=== PATIENT | female | born 1975 | race Caucasian/White ===

== ENCOUNTER → 2017-08-07 11:51 | Outpatient (CLI) | payer OTHER, SELFPAY ==
[2017-08-07 14:14] LABS: Anion Gap 7 (5-15); BUN 12 mg/dL (7-18); BUN/Creat Ratio 14.8 RATIO (10-20); Calcium,Total 8.7 mg/dL (8.5-10.1); Chloride 104 mmol/L (98-107); Creatinine, Serum 0.81 mg/dL (0.55-1.02); EST Glomerular Filtration Rate 82 mL/min (>60); Est Glom Filt Rate - Afr Amer 99 mL/min (>60); Glucose 105 mg/dL (74-106); Magnesium 2.2 mg/dL (1.6-2.6); Potassium 3.8 mmol/L (3.5-5.1); Sodium Level 141 mmol/L (136-145)
== END ==
PROVIDERS: Family Provider Family Medicine; PCP Family Medicine; Visit Provider Family Medicine
DX: I10 Essential (primary) hypertension (principal)
CPT/HCPCS: 36415; 80048; 83735

== ENCOUNTER → 2017-09-27 08:31 | Outpatient (CLI) | payer OTHER, SELFPAY ==
--- NOTE | 2017-09-27 08:31 | DT_ITS ---
This patient was seen during an EMR downtime September 23, 2017 - September 30, 2017. This patient may have a combination of paper and electronic documentation or all paper documentation. All documentation is viewable within the e-chart portion of [facility] for each patient visit.
--- NOTE | 2017-09-27 08:38 | BI_ITS ---
MAMMOGRAPHY - BILATERAL SCREENING REASON FOR EXAM: Female, 42 years old. Routine annual screening examination. PERTINENT HISTORY: BASELINE EXAM NO FAM HX NO SX TECHNIQUE: Digital bilateral breast kimmie (3D mammographic acquisition) in the CC and MLO projections. 2-D mediolateral oblique (MLO) and craniocaudad (CC) views of both breasts were obtained. CAD: Full Field Digital Mammography with Computer Added Detection was performed. COMPARISON: None. FINDINGS: Breast Composition: The breasts are heterogeneously dense, which may obscure small masses. There are no dominant masses or suspicious calcifications. No other significant abnormalities are identified. BI/SCREENING MAMM (CAD), BILAT IMPRESSION: Stable bilateral screening mammogram. Yearly follow-up mammogram recommended. (A) ASSESSMENT CATEGORY: BIRADS Category 2: Benign. A letter regarding these results will be sent to the patient by the facility within 30 days. Approximately 10% of breast cancers are not detected by mammography. A normal mammogram should not delay biopsy of a clinically suspicious abnormality. [id number] Electronically Signed: Ninfa Barragan MD at 13:39 EDT Tel , Service support ,
== END ==
PROVIDERS: Family Provider Family Medicine; PCP Family Medicine; Visit Provider Obstetrics & Gynecology
DX: Z12.31 Encounter for screening mammogram for malignant neoplasm of breast (principal)
CPT/HCPCS: 77063; 77067

== ENCOUNTER → 2018-07-22 11:14 | Outpatient (CLI) | payer BC, SELFPAY ==
[2016-03-01 11:44] VITALS: BMI 32.2
[2018-07-22 12:16] LABS: Absolute Lymphocyte Count 1.41 X10^3/ul (0.83-4.51); Absolute Neutrophil Count 5.5 X10^3/uL (2.0-7.7); Basophil# 0.01 X10^3/uL; Basophil% 0.1 % (0-1); Eosinophil# 0.04 X10^3/uL; Eosinophils% 0.5 % (0-5); Hematocrit 39.3 % (37-47); Hemoglobin 12.7 g/dl (12.0-15.0); Lymphocyte # 1.41 X10^3/ul (4.0); Lymphocyte % 18.7 % (19-41); Mean Corp Hgb Conc 32.3 g/gl (32-36); Mean Corpuscular Hgb 30.9 pg (27.0-32.0); Mean Corpuscular Volume 95.6 fL (81-99); Mean Platelet Vol. 10.7 fl (6.2-12.0); Monocyte# 0.53 X10^3/uL; Neutrophil # 5.54 X10^3/uL (2.7-7.7); Neutrophil % 73.6 % (47-70); Platelet Count 258 K/mm3 (150-450); RBC Distribution Width CV 12.6 % (11.6-14.6); RBC Distribution Width SD 44.1 fl (35.1-43.9); Red Blood Count 4.11 M/mm3 (4.2-5.4); White Blood Count 7.5 K/mm3 (4.4-11.0)
[2018-07-22 12:19] LABS: POSITIVE COUNT NO; POSITIVE DIFFERENTIAL NO; POSITIVE MORPHOLOGY NO
[2018-07-22 12:48] LABS: ALB/GLOB Ratio 1.1 RATIO (0.9-2.4); AST(SGOT) 8 U/L (15-37); Alanine Aminotransfer ALT/SGPT 17 U/L (13-56); Albumin, Serum 3.4 g/dL (3.2-5.0); Alkaline Phosphatase 52 U/L (45-117); Anion Gap 6 (5-15); BUN 15 mg/dL (7-18); BUN/Creat Ratio 22.1 RATIO (10-20); Calcium,Total 8.5 mg/dL (8.5-10.1); Chloride 105 mmol/L (98-107); Creatinine, Serum 0.68 mg/dL (0.55-1.02); EST Glomerular Filtration Rate 100 mL/min (>60); Est Glom Filt Rate - Afr Amer 121 mL/min (>60); Glucose 84 mg/dL (74-106); Potassium 3.9 mmol/L (3.5-5.1); Protein, Total 6.4 g/dL (6.4-8.2); Sodium Level 140 mmol/L (136-145); Thyroid Stim Hormone (TSH) 2.64 uIU/mL (0.358-3.74)
== END ==
PROVIDERS: Family Provider Family Medicine; PCP Family Medicine; Referring Provider Family Medicine; Visit Provider Family Medicine
DX: F41.1 Generalized anxiety disorder (principal)
CPT/HCPCS: 36415; 80053; 84443; 85025

== ENCOUNTER → 2018-08-28 10:26 | Outpatient (CLI) | payer BC, SELFPAY ==
[2016-03-01 11:44] VITALS: BMI 32.2
[2018-08-28 12:40] LABS: AST(SGOT) 8 U/L (15-37); Alanine Aminotransfer ALT/SGPT 16 U/L (13-56); Albumin, Serum 3.6 g/dL (3.2-5.0); Alkaline Phosphatase 56 U/L (45-117); Bilirubin, Direct 0.16 mg/dL (0.00-0.30); Globulin 3.2 g/dL (2.2-4.2); Protein, Total 6.8 g/dL (6.4-8.2)
== END ==
PROVIDERS: Family Provider Family Medicine; PCP Family Medicine; Referring Provider Family Medicine; Visit Provider Family Medicine
DX: F41.1 Generalized anxiety disorder (principal)
CPT/HCPCS: 36415; 80076

== ENCOUNTER → 2022-08-31 | Outpatient (CLI) | payer OTHER, SELFPAY ==
[2022-08-31 17:47] LABS: Absolute Neutrophil Count 7.8 X10^3/uL (2.0-7.7); Basophil# 0.03 X10^3/uL; Basophil% 0.3 % (0-1); Eosinophil# 0.08 X10^3/uL; Eosinophils% 0.8 % (0-5); Hematocrit 33.2 % (37-47); Hemoglobin 10.1 g/dL (12.0-15.0); Lymphocyte % 15.8 % (19-41); Mean Corp Hgb Conc 30.4 g/dL (32-36); Mean Corpuscular Hgb 25.1 pg (27.0-32.0); Mean Corpuscular Volume 82.4 fL (81-99); Mean Platelet Vol. 11.4 fl (6.2-12.0); Monocyte# 0.56 X10^3/uL; Monocyte% 5.5 % (0-10); NRBC Flagged by Analyzer 0 % (0-5); Neutrophil # 7.84 X10^3/uL (2.7-7.7); Neutrophil % 77.2 % (47-70); Platelet Count 258 K/mm3 (150-450); RBC Distribution Width CV 18.3 % (11.6-14.6); RBC Distribution Width SD 54.1 fl (35.1-43.9); Red Blood Count 4.03 M/mm3 (4.2-5.4); White Blood Count 10.2 K/mm3 (4.4-11.0)
[2022-08-31 17:50] LABS: Mucous, Urine 0 SEEN /hpf (<or=2+)
[2022-08-31 17:55] LABS: Color, Urine Yellow (Yellow); Glucose, Dipstick Normal (Normal); Ketone-Dipstick 5 mg/dl (Negative); Leukocyte Esterase-Dipstick 100 /ul (Negative); Nitrite-Dipstick Negative (Negative); Occult Blood-Urine 25 /ul (Negative); Protein-Dipstick 30 mg/dl (Negative); Urine Bilirubin Dipstick Negative (Negative); Urine Clarity Sl. Cloudy (Clear); Urine Urobilinogen Normal (Normal)
[2022-08-31 18:06] LABS: Bacteria RARE /hpf (None Seen); Red Blood Cells-Urine 0-5 SEEN /hpf (0-5); Squamous Epithelial Cells - UA 5-10 SEEN /hpf (5-10); White Blood Cells 50-100 SEEN /hpf (0-5)
[2022-08-31 18:20] LABS: ALB/GLOB Ratio 0.8 RATIO (0.9-2.4); AST(SGOT) 16 U/L (15-37); Alanine Aminotransfer ALT/SGPT 25 U/L (13-56); Albumin, Serum 3.3 g/dL (3.2-5.0); Alkaline Phosphatase 79 U/L (45-117); Anion Gap 6 (5-15); BUN 15 mg/dL (7-18); BUN/Creat Ratio 17.8 RATIO (10-20); Calcium,Total 8.6 mg/dL (8.5-10.1); Chloride 107 mmol/L (98-107); Creatinine, Serum 0.84 mg/dL (0.55-1.02); EST Glomerular Filtration Rate 76 mL/min (>60); Est Glom Filt Rate - Afr Amer 93 mL/min (>60); Globulin 3.9 g/dL (2.2-4.2); Glucose 101 mg/dL (74-106); Potassium 3.1 mmol/L (3.5-5.1); Protein, Total 7.2 g/dL (6.4-8.2); Sodium Level 140 mmol/L (136-145); Thyroid Stim Hormone (TSH) 4.22 uIU/mL (0.358-3.74)
== END | disposition home or self-care (01) ==
PROVIDERS: PCP Family Medicine; Visit Provider Family Medicine
DX: I10 Essential (primary) hypertension (principal); R35.0 Frequency of micturition; R39.15 Urgency of urination
CPT/HCPCS: 36415; 80053; 81001; 83036; 84443; 85025; 87077; 87086; 87088; 87186

== ENCOUNTER → 2022-11-09 | Outpatient (CLI) | payer OTHER, SELFPAY ==
[2022-11-09 18:59] LABS: Anion Gap 6 (5-15); BUN 21 mg/dL (7-18); BUN/Creat Ratio 22.8 RATIO (10-20); Chloride 107 mmol/L (98-107); Creatinine, Serum 0.92 mg/dL (0.55-1.02); EST Glomerular Filtration Rate 69 mL/min (>60); Est Glom Filt Rate - Afr Amer 84 mL/min (>60); Free T3 2.1 pg/mL (2.18-3.98); Glucose 85 mg/dL (74-106); Magnesium 2.1 mg/dL (1.6-2.6); Potassium 3.6 mmol/L (3.5-5.1); Sodium Level 140 mmol/L (136-145); T4 Free Direct 0.92 ng/dL (0.76-1.46); Thyroid Stim Hormone (TSH) 1.73 uIU/mL (0.358-3.74)
== END | disposition home or self-care (01) ==
LOC: MTLAB 15:26
PROVIDERS: PCP Family Medicine; Referring Provider Family Medicine; Visit Provider Family Medicine
DX: E87.6 Hypokalemia (principal); R79.89 Other specified abnormal findings of blood chemistry
CPT/HCPCS: 36415; 80048; 83735; 84439; 84443; 84481

== ENCOUNTER → 2023-03-22 | Outpatient (CLI) | payer OTHER, SELFPAY ==
[2023-03-22 18:23] LABS: Anion Gap 6 (5-15); BUN 17 mg/dL (7-18); BUN/Creat Ratio 22.6 RATIO (10-20); Calcium,Total 8.3 mg/dL (8.5-10.1); Chloride 107 mmol/L (98-107); Creatinine, Serum 0.75 mg/dL (0.55-1.02); EST Glomerular Filtration Rate 87 mL/min (>60); Est Glom Filt Rate - Afr Amer 106 mL/min (>60); Glucose 82 mg/dL (74-106); Magnesium 2.3 mg/dL (1.6-2.6); Potassium 3.8 mmol/L (3.5-5.1); Sodium Level 139 mmol/L (136-145)
== END | disposition home or self-care (01) ==
LOC: MFPLAB 15:32
PROVIDERS: PCP Family Medicine; Visit Provider Family Medicine
DX: I10 Essential (primary) hypertension (principal); E87.6 Hypokalemia; R79.89 Other specified abnormal findings of blood chemistry
CPT/HCPCS: 36415; 80048; 83735; 84443

== ENCOUNTER 2024-09-17 12:42 | Emergency (ER) | payer OTHER, SELFPAY ==
[2024-09-17 12:44] VITALS: BP 149/111; PULSE 88; RESP 14; TEMP 36.1; O2SAT 98; BMI 36.8
--- NOTE | 2024-09-17 13:20 | EX.ED.VIS.PS ---
HPI HPI - Psych History of Present Illness Chief Complaint: Mental Health Narrative Narrative: Chief complaint and HPI: Desmond. 48-year-old female with past medical history of bipolar presents for evaluation of mental health evaluation due to desmond. Patient states she follows with the counseling center in which she sees Dr. Case. She states she was recently titrated off of Abilify but is now back on a low dose. Also takes Wellbutrin and Lamictal. Patient states for the past 3 days she has had insomnia, flight of ideas, racing thoughts, pressured speech. in the room is in agreement. She endorses intermittent marijuana abuse. States that she called the counseling center today and they told her to come for mental health evaluation. She denies any visual or auditory hallucinations. Denies any homicidal or suicidal ideation. Denies any fever, chills, shortness of breath, chest pain, dysuria. States she has had some nausea. Review of systems: See HPI Medications: As listed on the chart Allergies: As listed on the chart PFSH: Per chart Vital signs: As listed on the chart. Reviewed. Physical exam: Gen: A&O x3, NAD Head: Normocephalic, atraumatic Eyes: No sclera icterus, conjunctiva clear ENT: Moist mucous membranes Neck: Trachea midline, No JVD CV: RRR, no murmurs Resp: Lungs CTA BL, no w/r/c GI: Abd soft, non-distended, non-tender, no r/r/g Musc: Full ROM, no deformity Skin: Warm, dry Neuro: Alert, oriented, grossly intact, sensation intact Psych: Cooperative, appropriate mood and affect, does not appear to have pressured speech or flight of ideas while speaking with me although reports she is speaking faster than normal [facility] Medical History (Updated 09/17/24 @ 14:[address] Say Mendoza, DO) Bipolar 1 disorder Home Medications ?Medication ?Instructions ?Recorded ?Last Taken ?Type aripiprazole 2 mg tablet 2 mg PO DAILY 09/06/15 Unknown History hydroxyzine pamoate 25 mg capsule 25 - 50 mg PO BID PRN Anxiety 09/29/15 Unknown History Lactobacillus acidophilus 2 1 ea PO DAILY 04/26/16 Unknown History billion cell tablet ascorbic acid (vitamin C) 500 mg 500 mg PO DAILY 04/26/16 Unknown History tablet (Vitamin C) bupropion HCl 300 mg 24 hr tablet, 300 mg PO DAILY 04/26/16 Unknown History extended release melatonin 10 mg sublingual tablet 10 mg PO QHS 04/26/16 Unknown History Allergy/AdvReac Type Severity Reaction Status Date / Time No Known Allergies Allergy Verified 09/17/24 12:43 Social History Smoking Status: Never smoker EXAM Physical Exam Const Vital Signs: 09/17/24 12:44 09/17/24 15:12 Temperature 97 F L 97.8 F Temperature Source Temporal Pulse Rate 88 74 Respiratory Rate 14 16 Blood Pressure 149/111 H 156/92 H Blood Pressure Mean 123 113 Pulse Ox 98 97 Oxygen Delivery Method Room Air MDM MDM MDM Narrative Medical decision making narrative: 48-year-old female with past medical history of bipolar presents for evaluation of mental health evaluation due to desmond. Patient states for the past 3 days she has had insomnia, flight of ideas, racing thoughts, and pressured speech. Called counseling center who wanted her evaluated in the emergency department. Denies suicidal or homicidal ideation. On presentation patient is alert and oriented x 3. She does not appear to have flight of ideas or racing thoughts while speaking with me. She does not appear to have pressured speech although states that she is talking faster than normal. Differential diagnosis includes but is not limited to bipolar with desmond, anxiety, insomnia, suspect less likely electrolyte abnormality, substance abuse, or thyroid disease. Mental health laboratory workup will be ordered for clearance. CBC unremarkable without leukocytosis or anemia. CMP unremarkable. TSH unremarkable. UA negative for UTI. Drug screen positive for cannabinoid. Patient does admit to marijuana abuse. Alcohol level unremarkable. Patient was evaluated by crisis, patient was safety planned and offered outpatient resources. I agree with this plan. Patient is comfortable. Return precautions explained. Patient stable to discharge home. Impression: 1. Bipolar disorder with reported desmond 2. Marijuana abuse Lab Data Labs: Laboratory Results - last 24 hr 09/17/24 09/17/24 13:51 14:36 WBC 8.9 RBC 4.66 Hgb 13.8 Hct 42.6 MCV 91.4 MCH 29.6 MCHC 32.4 RDW Std Deviation 49.4 H RDW Coeff of Vandana 14.6 Plt Count 245 MPV 10.5 Immature Gran % (Auto) 0.300 Neut % (Auto) 65.7 Lymph % (Auto) 24.2 Sequoyah % (Auto) 7.3 Eos % (Auto) 1.9 Baso % (Auto) 0.6 Absolute Neuts (auto) 5.9 Absolute Lymphs (auto) 2.16 Nucleated RBC % 0 Sodium 141 Potassium 3.7 Chloride 103 Carbon Dioxide 27.6 Anion Gap 11 BUN 14 Creatinine 0.76 Estim Creat Clear Calc 83.82 Est GFR (MDRD) Non-Af 96 BUN/Creatinine Ratio 18.3 Glucose 89 Calcium 9.6 Total Bilirubin 0.25 AST 16 ALT 14 Alkaline Phosphatase 94 Total Protein 7.4 Albumin 4.3 Globulin 3.0 Albumin/Globulin Ratio 1.4 TSH 2.800 Urine Color Yellow Urine Clarity Sl. Cloudy Urine pH 7.0 Ur Specific Edgard 1.015 Urine Protein Negative Urine Glucose (UA) Normal Urine Ketones Negative Urine Occult Blood 150 H Urine Nitrite Negative Urine Bilirubin Negative Urine Urobilinogen Normal Ur Leukocyte Esterase Negative Urine RBC 0-5 SEEN Urine WBC 0-5 SEEN Ur Squamous Epith Cells 5-10 SEEN Other Crystals Urine Bacteria 2+ Urine Mucus 0 SEEN Urine Opiates Screen NEGATIVE U Buprenorphine Qual NEGATIVE Ur Oxycodone Screen NEGATIVE Urine Methadone Screen NEGATIVE Urine Fentanyl Screen NEGATIVE Ur Barbiturates Screen NEGATIVE Ur Phencyclidine Scrn NEGATIVE Ur Amphetamines Screen NEGATIVE U Benzodiazepines Scrn NEGATIVE Urine Cocaine Screen NEGATIVE U Cannabinoids Screen PRESUMPTIVE POSITIVE Ethyl Alcohol < 10.1 Discharge Plan Triage Chief Complaint: Mental Health ED Provider: Say Mendoza Dx/Rx/DC Orders Clinical Impression: Bipolar disorder Instructions: ED Bipolar Disorder Prescriptions: No Action aripiprazole 2 MG tablet 2 mg PO DAILY hydroxyzine pamoate 25 MG capsule 25 - 50 mg PO BID PRN (Reason: Anxiety) ascorbic acid (vitamin C) [Vitamin C] 500 MG tablet 500 mg PO DAILY bupropion HCl 300 MG tablet extended release 24 hr 300 mg PO DAILY Lactobacillus acidophilus 1 EACH tablet 1 ea PO DAILY melatonin 10 MG tablet 10 mg PO QHS Primary Care Provider: Juan Antonio Shaw Referrals: Juan Antonio Shaw MD [Primary Care Provider] - 3-5 Days Activity Restrictions/Additional Instructions: Follow-up with primary care physician and psychiatrist as well as the counseling center. Return back to the ED if symptoms change or worsen. Print Language: Albanian Disposition Disposition: Home, Self Care Discharge Date/Time: 09/17/24 15:12
--- NOTE | 2024-09-17 14:00 | CM.ED ---
Social work Due to patient being a client at [facility] and this SW having other patient situations, SW called and spoke with Alexei at [facility] (ph: [phone]) who agreed to come and assess. Per Alexei, patient had psychiatry follow up scheduled for 09/29/24 and Alexei was able to safety plan with patient. No further needs identified at this time. Nadeen Smith, AROMATHERAPIST, VENEER TAPER
[2024-09-17 14:02] LABS: Absolute Lymphocyte Count 2.16 X10^3/uL (0.83-4.51); Absolute Neutrophil Count 5.9 X10^3/uL (2.0-7.7); Basophil# 0.05 X10^3/uL; Basophil% 0.6 % (0-1); Eosinophil# 0.17 X10^3/uL; Eosinophils% 1.9 % (0-5); Hematocrit 42.6 % (37-47); Hemoglobin 13.8 g/dL (12.0-15.0); Lymphocyte # 2.16 X10^3/ul (0.83-4.51); Lymphocyte % 24.2 % (19-41); Mean Corp Hgb Conc 32.4 g/dL (32-36); Mean Corpuscular Hgb 29.6 pg (27.0-32.0); Mean Corpuscular Volume 91.4 fL (81-99); Mean Platelet Vol. 10.5 fl (6.2-12.0); Monocyte# 0.65 X10^3/uL; Monocyte% 7.3 % (0-10); NRBC Flagged by Analyzer 0 % (0-5); Neutrophil # 5.88 X10^3/uL (2.7-7.7); Neutrophil % 65.7 % (47-70); Platelet Count 245 K/mm3 (150-450); RBC Distribution Width CV 14.6 % (11.6-14.6); RBC Distribution Width SD 49.4 fl (35.1-43.9); Red Blood Count 4.66 M/mm3 (4.2-5.4); White Blood Count 8.9 K/mm3 (4.4-11.0)
[2024-09-17 14:39] LABS: Alcohol, Blood (Medical)-Serum < 10.1 mg/dL (<=10.0)
[2024-09-17 14:47] LABS: ALB/GLOB Ratio 1.4 RATIO (0.9-2.4); AST(SGOT) 16 U/L (<=31); Alanine Aminotransfer ALT/SGPT 14 U/L (<=34); Albumin, Serum 4.3 g/dL (3.5-5.0); Alkaline Phosphatase 94 U/L (35-104); Anion Gap 11 (5-15); BUN 14 mg/dL (4-19); BUN/Creat Ratio 18.3 RATIO (10-20); Calcium,Total 9.6 mg/dL (7.6-11.0); Carbon Dioxide 27.6 mmol/L (21.0-32.0); Chloride 103 mmol/L (98-108); Creatinine, Serum 0.76 mg/dL (0.70-1.20); EST Glomerular Filtration Rate 96 (>60); Estimated Creatinine Clearance 83.82 ml/min (50-250); Glucose 89 mg/dL (70-99); Potassium 3.7 mmol/L (3.3-5.1); Protein, Total 7.4 g/dL (5.9-8.4); Sodium Level 141 mmol/L (133-145); Total Bilirubin 0.25 mg/dL (0.00-1.30)
[2024-09-17 15:00] LABS: Color, Urine Yellow (Yellow); Glucose, Dipstick Normal (Normal); Ketone-Dipstick Negative (Negative); Leukocyte Esterase-Dipstick Negative /ul (Negative); Mucous, Urine 0 SEEN /hpf (<or=2+); Nitrite-Dipstick Negative (Negative); Occult Blood-Urine 150 /ul (Negative); Protein-Dipstick Negative (Negative); Specific Gravity, Urine 1.015 (1.002-1.030); Urine Bilirubin Dipstick Negative (Negative); Urine Clarity Sl. Cloudy (Clear); Urine Urobilinogen Normal (Normal)
[2024-09-17 15:10] LABS: Bacteria 2+ /hpf (None Seen); Red Blood Cells-Urine 0-5 SEEN /hpf (0-5); Squamous Epithelial Cells - UA 5-10 SEEN /hpf (5-10); White Blood Cells 0-5 SEEN /hpf (0-5)
[2024-09-17 15:12] VITALS: BP 156/92; PULSE 74; RESP 16; TEMP 36.6; O2SAT 97
[2024-09-17 15:19] LABS: Amphetamine Urine NEGATIVE (<1000 ng/mL); Barbiturate Urine NEGATIVE (< 200 ng/mL); Benzodiazepine Urine NEGATIVE (< 200 ng/mL); Buprenorphine Urine NEGATIVE (< 200 ng/mL); Cocaine Urine NEGATIVE (< 300 ng/mL); Fentanyl, Urine NEGATIVE; Methadone Urine NEGATIVE (< 300 ng/mL); Opiates Urine NEGATIVE (< 300 ng/mL); Oxycodone, Urine NEGATIVE (< 100 ng/mL); PCP Urine NEGATIVE (< 25 ng/mL); THC Urine PRESUMPTIVE POSITIVE (< 50 ng/mL)
== END 2024-09-17 15:12 | disposition home or self-care (01) ==
PROVIDERS: Emergency Provider Surgery; PCP Family Medicine; Referring Provider Surgery; Visit Provider Surgery
DX: F30.9 Manic episode, unspecified (principal); F12.10 Cannabis abuse, uncomplicated
CPT/HCPCS: 80053; 80307; 81001; 82077; 84443; 85025; 99282

== ENCOUNTER → 2024-10-16 | Outpatient (CLI) | payer OTHER, SELFPAY ==
[2024-10-16 12:16] LABS: Absolute Lymphocyte Count 1.62 X10^3/uL (0.83-4.51); Absolute Neutrophil Count 5.9 X10^3/uL (2.0-7.7); Basophil# 0.04 X10^3/uL; Basophil% 0.5 % (0-1); Eosinophil# 0.11 X10^3/uL; Eosinophils% 1.4 % (0-5); Hematocrit 41.4 % (37-47); Hemoglobin 13.6 g/dL (12.0-15.0); Lymphocyte # 1.62 X10^3/ul (0.83-4.51); Lymphocyte % 20.1 % (19-41); Mean Corp Hgb Conc 32.9 g/dL (32-36); Mean Corpuscular Hgb 30.5 pg (27.0-32.0); Mean Corpuscular Volume 92.8 fL (81-99); Mean Platelet Vol. 10.5 fl (6.2-12.0); Monocyte# 0.37 X10^3/uL; Monocyte% 4.6 % (0-10); NRBC Flagged by Analyzer 0 % (0-5); Neutrophil # 5.87 X10^3/uL (2.7-7.7); Neutrophil % 72.7 % (47-70); Platelet Count 241 K/mm3 (150-450); RBC Distribution Width CV 13.3 % (11.6-14.6); RBC Distribution Width SD 45.3 fl (35.1-43.9); Red Blood Count 4.46 M/mm3 (4.2-5.4); White Blood Count 8.1 K/mm3 (4.4-11.0)
[2024-10-16 13:16] LABS: ALB/GLOB Ratio 1.5 RATIO (0.9-2.4); AST(SGOT) 18 U/L (<=31); Alanine Aminotransfer ALT/SGPT 17 U/L (<=34); Albumin, Serum 4.2 g/dL (3.5-5.0); Alkaline Phosphatase 88 U/L (35-104); Anion Gap 12 (5-15); BUN 13 mg/dL (4-19); Calcium,Total 9.2 mg/dL (7.6-11.0); Carbon Dioxide 23.4 mmol/L (21.0-32.0); Chloride 105 mmol/L (98-108); Creatinine, Serum 0.81 mg/dL (0.70-1.20); EST Glomerular Filtration Rate 88 (>60); Globulin 2.8 g/dL (2.2-4.2); Glucose 107 mg/dL (70-99); Potassium 3.6 mmol/L (3.3-5.1); Sodium Level 140 mmol/L (133-145); Total Bilirubin 0.24 mg/dL (0.00-1.30)
[2024-10-16 13:49] LABS: Lithium 0.24 mmol/L (0.60-1.20)
== END | disposition home or self-care (01) ==
LOC: LAB 11:27
PROVIDERS: PCP Family Medicine; Referring Provider Registered Nurse; Visit Provider Registered Nurse
DX: Z79.899 Other long term (current) drug therapy (principal)
CPT/HCPCS: 36415; 80053; 80178; 84443; 85025

== ENCOUNTER → 2024-11-17 | Outpatient (CLI) | payer OTHER, SELFPAY ==
--- OUTSIDE RECORDS SUMMARY | 2024-11-17 05:52 | XMS RPT_ITS | CCD ---
Author Organization [facility] Inform ion Partnership [facility] Care Team Providers Care Benefits Assistant Name Role Phone AL-ALI, FIRAS Unavailable Unavailable AL-ALI, FIRAS Unavailable Unavailable ILAN HERNANDEZ Unavailable Unavailable [facility], CRIT Unavailable Unavaila DEJAH Marsh Unavailable Unavailable AL-ALI, FIRAS Unavailable Unavailable AL-ALI, FIRAS Unavailable Unavailable Pcp, No Primary Care Provider Unavailabl e Unavailable Primary Care Provider UnavailSobeida Saxena NP Referring Unavailable Sobeida Trejo NP Attending Unavailable Juan Antonio Shaw Primary Care Unavailable Say Mendoza Attending UnavailJuan Antonio De La Garza Primary Care Unavailable Say eMndoza Referring Unavailabl e Medications Current Medications Medication Drug Class(es) Dates Sig (Normalized) Sig (Original) sulfamethoxazole 800 mg / trimethoprim 160 mg oral tablet (1 source) Dihydrofolate Reductase Inhibitor Antibacterial, Sulfonamide Antimicrobial Start: 08-05-2022 End: 08-08-2022 take 1 tablet by mouth twice daily sulfamethoxazol e-trimethoprim (BACTRIM DS) 800-160 mg per tablet Take 1 tablet by mouth twice daily for 3 days. 6 tablet 0 08/05/2022 08/08/2022 Active Comment on above: Take 1 tablet by [facility] twice daily for 3 days. Completed/Discontinued Medications Medication Drug Class(es) Dates Sig (Normalized) Sig (Original) acetaminophen 325 mg / oxyCODONE hydrochloride 7.5 mg oral tablet (2 sources) Opioid Agonist Start: 10-20-2015 take 1 tablet by mouth every six hours as needed oxyCODONE-acetamin ophen (PERCOCET) 7.5-325 mg tablet Take 1 tablet by mouth every 6 hours as needed. 20 tablet 0 10/20/2015 Active Comment on above: Take 1 tablet by [facility] every 6 hours as needed. ARIPiprazole 2 mg oral tablet (2 sources) Atypical Antipsychotic Start: 08-29-2015 ARIPiprazole (ABILIFY) 2 mg tablet Aspirin (2 sources) Platelet Aggregation Inhibitor, Nonsteroidal Anti-inflammatory Drug BABY ASPIRIN ORAL once daily. 0 Active Comment on above: once daily. benzoyl peroxide 0.05 mg/mg / clindamycin 0.01 mg/mg topical gel (2 sources) Lincosamide Antibacterial Start: 08-16-2015 Clindamycin-Benzoy l Peroxide 1-5 % gel 24 hr buPROPion hydrochloride 150 mg extended release oral tablet (4 sources) Aminoketone Start: 08-29-2015 buPROPion XL (WELLBUTRIN XL) 150 mg 24 hr tablet take 25 mg by mouth once daily B UPROPION HCL (WELLBUTRIN ORAL) 25 mg once daily. 0 Active Comment on above: 25 mg once daily. famotidine 20 mg oral tablet (2 sources) Histamine-2 Receptor Antagonist take 1 tablet by mouth twice daily famotidine (PEPCID) 20 mg tablet Take 20 mg by mouth twice daily. 0 Active Comment on above: Take 20 mg by mouth twice daily. FLUoxetine 40 mg oral capsule (2 sources) Serotonin Reuptake Inhibitor Start: 016 FLUoxetine HCl (PROZAC) 40 mg capsule fluticasone propionate 0.05 mg/actuat metered dose nasal spray (2 sources) Corticosteroid take 1 spray(s) nasal route once daily fluticasone (FLONASE) 50 mcg/actuation nasal spray Use 1 [place] in each nostril once daily. 0 Active Comment on above: Use 1 [place] in each nostril once daily. hydrOXYzine pamoate 25 mg oral capsule (2 sources) Antihistamine Start: 016 hydrOXYzine pamoate (VISTARIL) 25 mg capsule loratadine 10 mg oral capsule (2 sources) loratadine 10 mg cap Take by mouth. 0 Active Comment on above: Take by mouth. phenazopyridine hydrochloride 200 mg oral tablet (1 source) Start: 023 take 1 tablet by mouth every eight hours as needed phenazopyridine (PYRIDIUM) 200 mg tablet Take 1 tablet by mouth three times daily as needed. 6 tablet 0 08/05/2022 Active Comment on above: Take 1 tablet by [facility] three times daily as needed. 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-2013 Chronic Genitourinary symptoms and ill-defined conditions (2 sources) Increased frequency of urination; Translations: [Frequency of micturition] Episodic Immunizations and screening for infectious disease (7 sources) Patient encounter status; Translations: [Encounter for screening for human papillomavirus (HPV)] Episodic Mood disorders (1 source) Manic episode, unspecified; Translations: [Manic episode, unspecified] Onset: 09-22-2024 Chronic Other aftercare (1 source) Other technician terminal and repeater (current) drug therapy; Translations: [Other technician terminal and repeater (current) drug therapy] Onset: 10-21-2024 Episodic Other female genital disorders (1 source) Abnormal uterine bleeding; Translations: [Abnormal uterine and vaginal bleeding, unspecified] Chronic Other nutritional; endocrine; and metabolic disorders (1 source) Obesity; Translations: [Other obesity due to excess calories] Chronic Other screening for suspected conditions (not mental disorders or infectious disease) (1 source) Cancer cervix screening status; Translations: [Encounter for screening for malignant neoplasm of cervix] Episodic Other skin disorders (2 sources) Acne; Translations: [Other acne] 11-21-2005 Episodic Other upper respiratory disease (2 sources) Allergic rhinitis; Translations: [Allergic rhinitis, unspecified] 11-21-2005 Chronic Past or Other Problems Problem Classification Problem Date Documented Da te Episodic/Chronic Calculus of urinary tract (2 sources) Kidney stone; Translations: [Calculus of kidney] Onset: 05-02-2007 05-02-2007 Episodic Unclassified (1 source) CAROTID ART DISSECTION; Translations: [CAROTID ART DISSECTION] Onset: 11-26-2013 Results Test Name Value Interpretation Reference Range Facility CBC W/Diff, Automatedon 09-21 Absolute Lymph 1.62 X10 3/uL Normal 0.83-4.51 [facility] Comment on above: Performed By: #### L [id number], L100.0100, L500.4050, L501.9060 #### [facility] [address] [place], [address] Absolute Neut 5.9 X10 3/uL Normal 2.0-7.7 [facility] Comment on above: Performed By: #### L [id number], L100.0100, L500.4050, L501.9060 #### [facility] [address] [place], [address] Basophils/100 WBC (Bld) 0.5 % Normal 0-1 [facility] Comment on above: Performed By: #### L [id number], L100.0100, L500.4050, L501.9060 #### [facility] [address] [place], [address] Eosinophils/100 WBC (Bld) 1.4 % Normal 0-5 [facility] Comment on above: Performed By: #### L [id number], L100.0100, L500.4050, [id number] #### [facility] [address] [place], [address] Erythrocyte distribution width (RBC) [Ratio] 13.3 % Normal 11.6-14.6 [facility] Comment on above: Performed By: #### L [id number], L100.0100, L500.4050, L501.9060 #### [facility] [address] [place], [address] Hematocrit (Bld) [Volume fraction] 41.4 % Normal 37-47 [facility] Comment on above: Performed By: #### L 501.9520, L100.0100, L500.4050, L501.9060 #### [facility] [address] [place], [address] Hemoglobin (Bld) [Mass/Vol] 13.6 g/dL Normal 12.0-15.0 [facility] Comment on above: Performed By: #### L 501.9520, L100.0100, L500.4050, L501.9060 #### [facility] [address] [place], [address] IG% 0.700 Normal 0.0-0.9 [facility] Comment on above: Result Comment: IG% - Immature Granulocytes (promyelocytes, myelocytes and metamyelocytes) > 1% indicates that a LEFT SHIFT is Present. Performed By: #### L [id number], L100.0100, L500.4050, L501.9060 #### [facility] [address] [place], [address] Lymphocytes/100 WBC (Bld) 20.1 % Normal 19-41 [facility] Comment on above: Performed By: #### L 501.9520, L100.0100, L500.4050, L501.9060 #### [facility] [address] [place], [address] MCH (RBC) [Entitic mass] 30.5 pg Normal 27.0-32.0 [facility] Comment on above: Performed By: #### L 501.9520, L100.0100, L500.4050, L501.9060 #### [facility] [address] [place], [address] MCHC (RBC) [Mass/Vol] 32.9 g/dL Normal 32-36 [facility] Comment on above: Performed By: #### L 501.9520, L100.0100, L500.4050, L501.9060 #### [facility] [address] [place], [address] MCV (RBC) [Entitic vol] 92.8 fL Normal 81-99 [facility] Comment on above: Performed By: #### L 501.9520, L100.0100, L500.4050, L501.9060 #### [facility] [address] [place], [address] Monocytes/100 WBC (Bld) 4.6 % Normal 0-10 [facility] Comment on above: Performed By: #### L 501.9520, L100.0100, L500.4050, [id number] #### [facility] [address] [place], [address] Neutrophils/100 WBC (Bld) 72.7 % High 47-70 [facility] Comment on above: Performed By: #### L 501.9520, L100.0100, L500.4050, L501.9060 #### [facility] [address] [place], [address] Nucleated RBC (Bld) [#/Vol] 0 10*3/uL Normal 0-5 [facility] Comment on above: Performed By: #### L 501.9520, L100.0100, L500.4050, L501.9060 #### [facility] [address] [place], [address] Platelet mean volume (Bld) [Entitic vol] 10.5 fL Normal 6.2-12.0 [facility] Comment on above: Performed By: #### L 501.9520, L100.0100, L500.4050, L501.9060 #### [facility] [address] [place], [address] Platelets (Bld) [#/Vol] 241 10*3/uL Normal 150-450 [facility] Comment on above: Performed By: #### L 501.9520, L100.0100, L500.4050, L501.9060 #### [facility] [address] [place], [address] RBC (Bld) [#/Vol] 4.46 10*6/uL Normal 4.2-5.4 [facility] Comment on above: Performed By: #### L 501.9520, L100.0100, L500.4050, L501.9060 #### [facility] [address] [place], [address] RDW SD 45.3 fl High 35.1-43.9 [facility] Comment on above: Performed By: #### L 501.9520, L100.0100, L500.4050, L501.9060 #### [facility] [address] [place], [address] WBC (Bld) [#/Vol] 8.1 10*3/uL Normal 4.4-11.0 [facility] Comment on above: Performed By: #### L 501.9520, L100.0100, L500.4050, L501.9060 #### [facility] [address] [place], [address] Comprehensive Metabolic [facility] 10-16-2024 Albumin [Mass/Vol] 4.2 g/dL Normal 3.5-5.0 [facility] Comment on above: Performed By: #### L 501.9520, L100.0100, L500.4050, L501.9060 #### [facility] [address] [place], [address] Albumin/Globulin [Mass ratio] 1.5 {ratio} Normal 0.9-2.4 [facility] Comment on above: Performed By: #### L 501.9520, L100.0100, L500.4050, L501.9060 #### [facility] [address] [place], [address] ALK PHOS 88 U/L Normal 35-104 [facility] Comment on above: Performed By: #### L 501.9520, L100.0100, L500.4050, L501.9060 #### [facility] [address] [place], [address] ALT [Catalytic activity/Vol] 17 U/L Normal <=34 [facility] Comment on above: Performed By: #### L 501.9520, L100.0100, L500.4050, L501.9060 #### [facility] [address] [place], [address] AST [Catalytic activity/Vol] 18 U/L Normal <=31 [facility] Comment on above: Performed By: #### L 501.9520, L100.0100, L500.4050, L501.9060 #### [facility] [address] [place], [address] Bilirubin [Mass/Vol] 0.24 mg/dL Normal 0.00-1.30 [facility] Comment on above: Performed By: #### L 501.9520, L100.0100, L500.4050, L501.9060 #### [facility] [address] [place], [address] BUN/CRE 16.0 RATIO Normal 10-20 [facility] Comment on above: Performed By: #### L 501.9520, L100.0100, L500.4050, L501.9060 #### [facility] [address] [place], [address] Calcium [Mass/Vol] 9.2 mg/dL Normal 7.6-11.0 [facility] Comment on above: Performed By: #### L 501.9520, L100.0100, L500.4050, L501.9060 #### [facility] [address] [place], [address] Chloride [Moles/Vol] 105 mmol/L Normal 98-108 [facility] Comment on above: Performed By: #### L 501.9520, L100.0100, L500.4050, L501.9060 #### [facility] [address] [place], [address] CO2 [Moles/Vol] 23.4 mmol/L Normal 21.0-32.0 [facility] Comment on above: Performed By: #### L 501.9520, L100.0100, L500.4050, L501.9060 #### [facility] [address] [place], [address] Creatinine [Mass/Vol] 0.81 mg/dL Normal 0.70-1.20 [facility] Comment on above: Performed By: #### L 501.9520, L100.0100, L500.4050, L501.9060 #### [facility] [address] [place], [address] GAP 12 Normal 5-15 [facility] Comment on above: Performed By: #### L 501.9520, L100.0100, L500.4050, L501.9060 #### [facility] [address] [place], [address] GFR/1.73 sq M.predicted among non-blacks MDRD (S/P/Bld) [Vol rate/Area] 88 mL/min/{1.73_m2} Normal >60 [facility] Comment on above: Result Comment: mL/m in/1.73m2 CKD-EPI Creatinine Equation (2020) Performed By: #### L 501.9520, L100.0100, L500.4050, L501.9060 #### [facility] [address] [place], [address] Globulin (S) [Mass/Vol] 2.8 g/dL Normal 2.2-4.2 [facility] Comment on above: Performed By: #### L 501.9520, L100.0100, L500.4050, L501.9060 #### [facility] [address] [place], [address] Glucose [Mass/Vol] 107 mg/dL High 70-99 [facility] Comment on above: Performed By: #### L 501.9520, L100.0100, L500.4050, L501.9060 #### [facility] [address] [place], [address] Potassium [Moles/Vol] 3.6 mmol/L Normal 3.3-5.1 [facility] Comment on above: Performed By: #### L 501.9520, L100.0100, L500.4050, L501.9060 #### [facility] [address] [place], [address] Sodium [Moles/Vol] 140 mmol/L Normal 133-145 [facility] Comment on above: Performed By: #### L 501.9520, L100.0100, L500.4050, L501.9060 #### [facility] [address] [place], [address] T PROT 7.0 g/dL Normal 5.9-8.4 [facility] Comment on above: Performed By: #### L 501.9520, L100.0100, L500.4050, L501.9060 #### [facility] [address] [place], [address] Urea nitrogen [Mass/Vol] 13 mg/dL Normal 4-19 [facility] Comment on above: Performed By: #### L 501.9520, L100.0100, L500.4050, L501.9060 #### [facility] [address] [place], [address] Lithiumon 10-16-2024 LI 0.24 mmol/L Low 0.60-1.20 [facility] Comment on above: Order Comment: [id number] Performed By: #### L 501.9520, L501.9100, L500.4050, L100.0100, L505.5000 #### [facility] [address] [place], [address] Thyroid Stim Hormone (TSH)on 10-16-2024 TSH 2.460 uIU/mL Normal 0.300-4.200 [facility] Comment on above: Performed By: #### L 501.9520, L100.0100, L500.4050, L501.9060 #### [facility] [address] [place], [address] Alcohol, Blood (Medical)-Ser on 09-17-2024 SERUM ETOH < 10.1 Normal <=10.0 [facility] Comment on above: Result Comment: This test is for medical purposes only. The legal definition of intoxication varies according to local law. Performed By: #### L 501.9520, L501.9100, L500.4050, L100.0100, L505.5000 #### [facility] [address] [place], [address] CBC W/Diff, Automatedon 05- Absolute Lymph 2.16 X10 3/uL Normal 0.83-4.51 [facility] Comment on above: Performed By: #### L 501.9520, L501.9100, L500.4050, L100.0100, L505.5000 #### [facility] [address] [place], [address] Absolute Neut 5.9 X10 3/uL Normal 2.0-7.7 [facility] Comment on above: Performed By: #### L 501.9520, L501.9100, L500.4050, L100.0100, L505.5000 #### [facility] [address] [place], [address] Basophils/100 WBC (Bld) 0.6 % Normal 0-1 [facility] Comment on above: Performed By: #### L 501.9520, L501.9100, L500.4050, L100.0100, L505.5000 #### [facility] [address] [place], [address] Eosinophils/100 WBC (Bld) 1.9 % Normal 0-5 [facility] Comment on above: Performed By: #### L 501.9520, L501.9100, L500.4050, L100.0100, L505.5000 #### [facility] [address] [facility] [place], [address] Erythrocyte distribution width (RBC) [Ratio] 14.6 % Normal 11.6-14.6 [facility] Comment on above: Performed By: #### L 501.9520, L501.9100, L500.4050, L100.0100, L505.5000 #### [facility] [address] [facility] [place], [address] Hematocrit (Bld) [Volume fraction] 42.6 % Normal 37-47 [facility] Comment on above: Performed By: #### L 501.9520, L501.9100, L500.4050, L100.0100, L505.5000 #### [facility] [address] [facility] [place], [address] Hemoglobin (Bld) [Mass/Vol] 13.8 g/dL Normal 12.0-15.0 [facility] Comment on above: Performed By: #### L 501.9520, L501.9100, L500.4050, L100.0100, L505.5000 #### [facility] [address] [facility] [place], [address] IG% 0.300 Normal 0.0-0.9 [facility] Comment on above: Result Comment: IG% - Immature Granulocytes (promyelocytes, myelocytes and metamyelocytes) > 1% indicates that a LEFT SHIFT is Present. Performed By: #### L 501.9520, L501.9100, L500.4050, L100.0100, L505.5000 #### [facility] [address] [facility] [place], [address] Lymphocytes/100 WBC (Bld) 24.2 % Normal 19-41 [facility] Comment on above: Performed By: #### L 501.9520, L501.9100, L500.4050, L100.0100, L505.5000 #### [facility] [address] [place], [address] MCH (RBC) [Entitic mass] 29.6 pg Normal 27.0-32.0 [facility] Comment on above: Performed By: #### L 501.9520, L501.9100, L500.4050, L100.0100, L505.5000 #### [facility] [address] [place], [address] MCHC (RBC) [Mass/Vol] 32.4 g/dL Normal 32-36 [facility] Comment on above: Performed By: #### L 501.9520, L501.9100, L500.4050, L100.0100, L505.5000 #### [facility] [address] [place], [address] MCV (RBC) [Entitic vol] 91.4 fL Normal 81-99 [facility] Comment on above: Performed By: #### L 501.9520, L501.9100, L500.4050, L100.0100, L505.5000 #### [facility] [address] [place], [address] Monocytes/100 WBC (Bld) 7.3 % Normal 0-10 [facility] Comment on above: Performed By: #### L 501.9520, L501.9100, L500.4050, L100.0100, L505.5000 #### [facility] [address] [place], [address] Neutrophils/100 WBC (Bld) 65.7 % Normal 47-70 [facility] Comment on above: Performed By: #### L 501.9520, L501.9100, L500.4050, L100.0100, L505.5000 #### [facility] [address] [place], [address] Nucleated RBC (Bld) [#/Vol] 0 10*3/uL Normal 0-5 [facility] Comment on above: Performed By: #### L 501.9520, L501.9100, L500.4050, L100.0100, L505.5000 #### [facility] [address] [place], [address] Platelet mean volume (Bld) [Entitic vol] 10.5 fL Normal 6.2-12.0 [facility] Comment on above: Performed By: #### L 501.9520, L501.9100, L500.4050, L100.0100, L505.5000 #### [facility] [address] [place], [address] Platelets (Bld) [#/Vol] 245 10*3/uL Normal 150-450 [facility] Comment on above: Performed By: #### L 501.9520, L501.9100, L500.4050, L100.0100, L505.5000 #### [facility] [address] [place], [address] RBC (Bld) [#/Vol] 4.66 10*6/uL Normal 4.2-5.4 [facility] Comment on above: Performed By: #### L 501.9520, L501.9100, L500.4050, L100.0100, L505.5000 #### [facility] [address] [place], [address] RDW SD 49.4 fl High 35.1-43.9 [facility] Comment on above: Performed By: #### L 501.9520, L501.9100, L500.4050, L100.0100, L505.5000 #### [facility] [address] [place], [address] WBC (Bld) [#/Vol] 8.9 10*3/uL Normal 4.4-11.0 [facility] Comment on above: Performed By: #### L 501.9520, L501.9100, L500.4050, L100.0100, L505.5000 #### [facility] [address] [place], [address] Comprehensive Metabolic Prof ilon 09-17-2024 Albumin [Mass/Vol] 4.3 g/dL Normal 3.5-5.0 [facility] Comment on above: Performed By: #### L 501.9520, L501.9100, L500.4050, L100.0100, L505.5000 #### [facility] [address] [place], [address] Albumin/Globulin [Mass ratio] 1.4 {ratio} Normal 0.9-2.4 [facility] Comment on above: Performed By: #### L 501.9520, L501.9100, L500.4050, L100.0100, L505.5000 #### [facility] [address] [place], [address] ALK PHOS 94 U/L Normal 35-104 [facility] Comment on above: Performed By: #### L 501.9520, L501.9100, L500.4050, L100.0100, L505.5000 #### [facility] [address] [place], [address] ALT [Catalytic activity/Vol] 14 U/L Normal <=34 [facility] Comment on above: Performed By: #### L 501.9520, L501.9100, L500.4050, L100.0100, L505.5000 #### [facility] [address] [place], [address] AST [Catalytic activity/Vol] 16 U/L Normal <=31 [facility] Comment on above: Performed By: #### L 501.9520, L501.9100, L500.4050, L100.0100, L505.5000 #### [facility] [address] [place], [address] Bilirubin [Mass/Vol] 0.25 mg/dL Normal 0.00-1.30 [facility] Comment on above: Performed By: #### L 501.9520, L501.9100, L500.4050, L100.0100, L505.5000 #### [facility] [address] [place], [address] BUN/CRE 18.3 RATIO Normal 10-20 [facility] Comment on above: Performed By: #### L 501.9520, L501.9100, L500.4050, L100.0100, L505.5000 #### [facility] [address] [place], [address] Calcium [Mass/Vol] 9.6 mg/dL Normal 7.6-11.0 [facility] Comment on above: Performed By: #### L 501.9520, L501.9100, L500.4050, L100.0100, L505.5000 #### [facility] [address] [place], [address] Chloride [Moles/Vol] 103 mmol/L Normal 98-108 [facility] Comment on above: Performed By: #### L 501.9520, L501.9100, L500.4050, L100.0100, L505.5000 #### [facility] [address] [place], [address] CO2 [Moles/Vol] 27.6 mmol/L Normal 21.0-32.0 [facility] Comment on above: Performed By: #### L 501.9520, L501.9100, L500.4050, L100.0100, L505.5000 #### [facility] [address] [place], [address] Creatinine [Mass/Vol] 0.76 mg/dL Normal 0.70-1.20 [facility] Comment on above: Performed By: #### L 501.9520, L501.9100, L500.4050, L100.0100, L505.5000 #### [facility] [address] [place], [address] ECRCL 83.82 ml/min Normal 50-250 [facility] Comment on above: Performed By: #### L 501.9520, L501.9100, L500.4050, L100.0100, L505.5000 #### [facility] [address] [place], [address] GAP 11 Normal 5-15 [facility] Comment on above: Performed By: #### L 501.9520, L501.9100, L500.4050, L100.0100, L505.5000 #### [facility] [address], [address] GFR/1.73 sq M.predicted among non-blacks MDRD (S/P/Bld) [Vol rate/Area] 96 mL/min/{1.73_m2} Normal >60 [facility] Comment on above: Result Comment: mL/m in/1.73m2 CKD-EPI Creatinine Equation (2020) Performed By: #### L 501.9520, L501.9100, L500.4050, L100.0100, L505.5000 #### [facility] [address] [place], [address] Globulin (S) [Mass/Vol] 3.0 g/dL Normal 2.2-4.2 [facility] Comment on above: Performed By: #### L 501.9520, L501.9100, L500.4050, L100.0100, L505.5000 #### [facility] [address] [place], [address] Glucose [Mass/Vol] 89 mg/dL Normal 70-99 [facility] Comment on above: Performed By: #### L 501.9520, L501.9100, L500.4050, L100.0100, L505.5000 #### [facility] [address] [place], [address] Potassium [Moles/Vol] 3.7 mmol/L Normal 3.3-5.1 [facility] Comment on above: Performed By: #### L 501.9520, L501.9100, L500.4050, L100.0100, L505.5000 #### [facility] [address] [place], [address] Sodium [Moles/Vol] 141 mmol/L Normal 133-145 [facility] Comment on above: Performed By: #### L 501.9520, L501.9100, L500.4050, L100.0100, L505.5000 #### [facility] [address] [place], [address] T PROT 7.4 g/dL Normal 5.9-8.4 [facility] Comment on above: Performed By: #### L 501.9520, L501.9100, L500.4050, L100.0100, L505.5000 #### [facility] [address] [place], [address] Urea nitrogen [Mass/Vol] 14 mg/dL Normal 4-19 [facility] Comment on above: Performed By: #### L 501.9520, L501.9100, L500.4050, L100.0100, L505.5000 #### [facility] [address] [place], [address] Emergency Department Summary on 09-17-2024 Emergency Department Summary [facility] Medical Records Department [address] [place] [address] Emergency Department Summary 09/17/24 MR#: [id number] Acct: [id number] Name: CLARI CHURCH Rep #: [id number] : 1975 48 From: Say Mendoza DO PCP: Dr. Juan Antonio Shaw MD Status:DEP ER Location: ED HPI HPI - Psych History of Present Illness Chief Complaint: Mental Health Narrative Narrative: Chief complaint and HPI: Desmond. 48-year-old female with past medical history of bipolar presents for evaluation of mental health evaluation due to desmond. Patient states she follows with the counseling center in which she sees Dr. Case. She states she was recently titrated off of Abilify but is now back on a low dose. Also takes Wellbutrin and Lamictal. Patient states for the past 3 days she has had insomnia, flight of ideas, racing thoughts, pressured speech. in the room is in agreement. She endorses intermittent marijuana abuse. States that she called the counseling center today and they told her to come for mental health evaluation. She denies any visual or auditory hallucinations. Denies any homicidal or suicidal ideation. Denies any fever, chills, shortness of breath, chest pain, dysuria. States she has had some nausea. Review of systems: See HPI Medications: As listed on the chart Allergies: As listed on the chart PFSH: Per chart Vital signs: As listed on the chart. Reviewed. Physical exam: Gen: A O x3, NAD Head: Normocephalic, atraumatic Eyes: No sclera icterus, conjunctiva clear ENT: Moist mucous membranes Neck: Trachea midline, No JVD CV: RRR, no murmurs Resp: Lungs CTA BL, no w/r/c GI: Abd soft, non-distended, non-tender, no r/r/g Musc: Full ROM, no deformity Skin: Warm, dry Neuro: Alert, oriented, grossly intact, sensation intact Psych: Cooperative, appropriate mood and affect, does not appear to have pressured speech or flight of ideas while speaking with me although reports she is speaking faster than normal [facility] Medical History (Updated 09/17/24 @ 14:[address] Say Mendoza, DO) Bipolar 1 disorder Home Medications ???Medication ???Instructions ???Recorded ???Last Taken ???Type aripiprazole 2 mg tablet 2 mg PO DAILY 09/06/15 Unknown His tory hydroxyzine pamoate 25 mg capsule 25 - 50 mg PO BID PRN Anxiety 01/05 Unknown History Lactobacillus acidophilus 2 1 ea PO DAILY 04/26/16 Unknown His tory billion cell tablet ascorbic acid (vitamin C) 500 mg 500 mg PO DAILY 04/26/16 Unknown H istory tablet (Vitamin C) bupropion HCl 300 mg 24 hr tablet, 300 mg PO DAILY 04/26/16 Unknown History extended release melatonin 10 mg sublingual tablet 10 mg PO QHS 04/26/16 Unknown His tory Allergy/AdvReac Type Severity Reaction Status Date / Time No Known Allergies Allergy Verified 09/17/24 12:43 Social History Smoking Status: Never smoker EXAM Physical Exam Const Vital Signs: 09/17/24 12:44 09/17/24 15:12 Temperature 97 F L 97.8 F Temperature Source Temporal Pulse Rate 88 74 Respiratory Rate 14 16 Blood Pressure 149/111 H 156/92 H Blood Pressure Mean 123 113 Pulse Ox 98 97 Oxygen Delivery Method Room Air MDM MDM MDM Narrative Medical decision making narrative: 48-year-old female with past medical history of bipolar presents for evaluation of mental health evaluation due to desmond. Patient states for the past 3 days she has had insomnia, flight of ideas, racing thoughts, and pressured speech. Called counseling center who wanted her evaluated in the emergency department. Denies suicidal or homicidal ideation. On presentation patient is alert and oriented x 3. She does not appear to have flight of ideas or racing thoughts while speaking with me. She does not appear to have pressured speech although states that she is talking faster than normal. Differential diagnosis includes but is not limited to bipolar with desmond, anxiety, insomnia, suspect less likely electrolyte abnormality, substance abuse, or thyroid disease. Mental health laboratory workup will be ordered for clearance. CBC unremarkable without leukocytosis or anemia. CMP unremarkable. TSH unremarkable. UA negative for UTI. Drug screen positive for cannabinoid. Patient does admit to marijuana abuse. Alcohol level unremarkable. Patient was evaluated by crisis, patient was safety planned and offered outpatient resources. I agree with this plan. Patient is comfortable. Return precautions explained. Patient stable to discharge home. Impression: 1. Bipolar disorder with reported desmond 2. Marijuana abuse Lab Data Labs: Laboratory Results - last 24 hr 09/17/24 09/17/24 13:51 14:36 WBC 8.9 RBC 4.66 Hgb 13.8 Hct 42.6 MCV 91.4 MCH 29.6 MCHC 32.4 RDW Std (more content not included)... Normal [facility] Thyroid Stim Hormone (TSH)on 09-17-2024 TSH 2.800 uIU/mL Normal 0.300-4.200 [facility] Comment on above: Performed By: #### L 501.9520, L501.9100, L500.4050, L100.0100, L505.5000 #### [facility] [address] [place], [address] Urinalysis, Completeon 09-17 BACTERIA 2+ /hpf Normal None Seen [facility] Comment on above: Order Comment: CLEAN CATCH Performed By: #### L 400.0001 #### [facility] [address] [place], [address] CRYSTAL,OTHER Normal None Seen [facility] Comment on above: Order Comment: CLEAN CATCH Result Comment: 1+ S TARCH Performed By: #### L 400.0001 #### [facility] [address] [place], [address] EPI,SQUAMOUS 5-10 SEEN Normal 5-10 [facility] Comment on above: Order Comment: CLEAN CATCH Performed By: #### L 400.0001 #### [facility] [address] [place], [address] RBC 0-5 SEEN Normal 0-5 [facility] Comment on above: Order Comment: CLEAN CATCH Performed By: #### L 400.0001 #### [facility] [address] [place], [address] WBC 0-5 SEEN Normal 0-5 [facility] Comment on above: Order Comment: CLEAN CATCH Performed By: #### L 400.0001 #### [facility] [address] [place], [address] Mucus Ql (Urine sed) 0 SEEN Normal [facility] Comment on above: Order Comment: CLEAN CATCH Performed By: #### L 400.0001 #### [facility] [address] [place], [address] Urine Drug Screen (VISTA)on 09-17-2024 AMPHETAMINES Negative Normal <1000 ng/mL [facility] Comment on above: Performed By: #### L 501.9520, L501.9100, L500.4050, L100.0100, L505.5000 #### [facility] [address] [place], [address] BARBITIURATES Negative Normal < 200 ng/mL [facility] Comment on above: Performed By: #### L 501.9520, L501.9100, L500.4050, L100.0100, L505.5000 #### [facility] [address] [place], [address] BENZODIAZIPINE Negative Normal < 200 ng/mL [facility] Comment on above: Performed By: #### L 501.9520, L501.9100, L500.4050, L100.0100, L505.5000 #### [facility] [address] [place], [address] BUP Ur Drug Scr Negative Normal < 200 ng/mL [facility] Comment on above: Performed By: #### L 501.9520, L501.9100, L500.4050, L100.0100, L505.5000 #### [facility] [address] [place], [address] COCAINE Negative Normal < 300 ng/mL [facility] Comment on above: Performed By: #### L 501.9520, L501.9100, L500.4050, L100.0100, L505.5000 #### [facility] [address] [place], [facility] Fentanyl Negative Normal [facility] Comment on above: Performed By: #### L 501.9520, L501.9100, L500.4050, L100.0100, L505.5000 #### [facility] [address] [place] [address] METHADONE Negative Normal < 300 ng/mL [facility] Comment on above: Performed By: #### L 501.9520, L501.9100, L500.4050, L100.0100, L505.5000 #### [facility] [address] [place], [facility] OPIATES Negative Normal < 300 ng/mL [facility] Comment on above: Performed By: #### L 501.9520, L501.9100, L500.4050, L100.0100, L505.5000 #### [facility] [address] [place], [facility] OXYCODONE Negative Normal < 100 ng/mL [facility] Comment on above: Performed By: #### L 501.9520, L501.9100, L500.4050, L100.0100, L505.5000 #### [facility] [address] [place], [facility] PCP Negative Normal < 25 ng/mL [facility] Comment on above: Performed By: #### L 501.9520, L501.9100, L500.4050, L100.0100, L505.5000 #### [facility] [address] [place], [facility] THC Positive Normal < 50 ng/mL [facility] Comment on above: Result Comment: If c onfirmation testing is needed, a separate order will be required to send out testing to the reference laboratory. Performed By: #### L 501.9520, L501.9100, L500.4050, L100.0100, L505.5000 #### [facility] [address] [place], [address] HIGH RISK HUMAN PAPILLOMA YANI (HPV), PCR FOR DETECTION AND GENOTYPINGon 05-05-2024 HPV 16 Ag Ql (Unsp spec) Not detected Normal Not detected [facility] Comment on above: Order Comment: Speci men Type: FLUID SPECIMEN Ordering Facility: [facility] Address: [address] [place], [place] [id number] Performed By: #### H PVHRT #### [facility] CLIA [id number] [address] [place] [address] [place] HPV 18 Ag Ql (Unsp spec) Not detected Normal Not detected [facility] Comment on above: Order Comment: Speci men Type: FLUID SPECIMEN Ordering Facility: [facility] Address: [address] [place] [address] Performed By: #### H PVHRT #### [facility] CLIA [id number] [address] [place] [address] [place] HPV 31+33+35+39+45+51+52 +56+58+59+66+68 DNA FEDE+probe Ql (Cvx) Not detected Normal Not detected [facility] Comment on above: Order Comment: Speci men Type: FLUID SPECIMEN Ordering Facility: [facility] Address: [address] [place] [address] Result Comment: High Risk HPV Other Type includes HPV types 31, 33, 35, 39, 45, 51, 52, 56, 58, 59, 66 and 68. Performed By: #### H PVHRT #### [facility] CLIA [id number] [address] [place] [address] [place] PAP TESTon 05-05-2024 ADEQUACY Satisfactory for interpretation. Normal [facility] Comment on above: Order Comment: Speci men Type: FLUID SPECIMEN Ordering Facility: [facility] Address: [address] [place] [address], [place] [address] Performed By: #### L [id number] #### [facility] CLIA [id number] [address] [place] [address] [place] CASE REPORT Normal [facility] Comment on above: Order Comment: Speci men Type: FLUID SPECIMEN Ordering Facility: [facility] Address: [address] [place] [address] Result Comment: Gyne cologic Cytology Report Case: [id number] Authorizing Provider: Ani Estrada NP Collected: 05/05/2024 12:00 PM Ordering Location: [facility] Received: 05/06/2024 07:50 AM [facility] First Screen: Lala Allan, CT, ASCP Specimen: Pap Test, ThinPrep, Cervix Performed By: #### L [id number] #### [facility] CLIA [id number] [address] [place] [address] [place] CLINICAL HISTORY, CYTOLOGY, BROOM HANDLE DIPPER Normal [facility] Comment on above: Order Comment: Speci men Type: FLUID SPECIMEN Ordering Facility: [facility] Address: [address] [place] [address] Result Comment: UNKN OWN Performed By: #### L [id number] #### [facility] CLIA [id number] [address] [place] [address] [place] FINAL PERFORMING LAB Normal [facility] Comment on above: Order Comment: Speci men Type: FLUID SPECIMEN Ordering Facility: [facility] Address: [address] [place] [address], [place] [address] Result Comment: Tech nical component, industrial fabric cutter screening performed at [facility] [address] CLIA# [id number] Diagnostic interpretation performed at [facility], [facility] [address] CLIA# [id number] Vocational Counselor: Peter Weber M.D. Performed By: #### L [id number] #### [facility] CLIA [id number] [address] [place] [address] [place] INTERPRETATION, CYTOLOGY, BROOM HANDLE DIPPER Normal [facility] Comment on above: Order Comment: Speci men Type: FLUID SPECIMEN Ordering Facility: [facility] Address: [address] [place] [address] Result Comment: Nega tive for intraepithelial lesion or malignancy. Performed By: #### L [id number] #### [facility] CLIA [id number] [address] [place] [address] [place] LMP Comment: UNKNOWN Normal [facility] Comment on above: Order Comment: Speci men Type: FLUID SPECIMEN Ordering Facility: [facility] Address: [address] [place] [address] Performed By: #### L [id number] #### [facility] CLIA [id number] [address] [place] [address] [place] PAP DISCLAIMER COMMENT The Pap Smear is a screening test for cervical cancer. False negative results occur with all screening tests, emphasizing the need for rescreening at recommended intervals, and clinical correlation. Normal [facility] Comment on above: Order Comment: Speci men Type: FLUID SPECIMEN Ordering Facility: [facility] Address: [address] [place] [address] Performed By: #### L [id number] #### [facility] CLIA [id number] [address] [place] [address] [place] PAP SUPERVISOR [employer] COMMENT This specimen has be en analyzed by the ThinPrep Imaging System, an automated imaging and review system, which assists the laboratory in evaluating cells on ThinPrep Pap tests. Following automated imaging, selected plaza from every slide are reviewed by a industrial fabric cutter. Normal [facility] Comment on above: Order Comment: Speci men Type: FLUID SPECIMEN Ordering Facility: [facility] [place] [facility] Address: [address] [place] [address] Performed By: #### L [id number] #### [facility] CLIA [id number] [address] [place], [place] [address] [place] UA DIP, URINE (POC)on 2022 BILIRUBIN UA (POCT) Negative Negative [facility] CLARITY UA (POCT) Clear [facility] COLOR UA (POCT) Yellow [facility] GLUCOSE UA (POCT) Negative Negative mg/dL [facility] HEMOGLOBIN/BLOOD UA (POCT) Trace-intact Abnormal Negative [facility] KETONE UA (POCT) Trace Negative mg/dL [facility] LEUKOCYTES UA (POCT) Trace Abnormal Negative [facility] NITRITE UA (POCT) Negative Negative [facility] PH UA (POCT) 7.0 4.5 - 8.0 [facility] Protein Ql (U) 30 mg/dL Abnormal Negative mg/dL [facility] SPECIFIC GRAVITY UA (POCT) 1.020 1.005 - 1.030 [facility] UROBILINOGEN UA (POCT) 0.2 E.U./dL Normal E.U./dL [facility] CBC panel Auto (Bld)on 05-22 Erythrocyte distribution width (RBC) [Ratio] 15.5 % High 11.5 - 15.0 % [facility] Hematocrit (Bld) [Volume fraction] 36.6 % 36.0 - 46.0 % [facility] Hemoglobin (Bld) [Mass/Vol] 11.3 g/dL Low 11.5 - 15.5 g/dL [facility] MCH (RBC) [Entitic mass] 25.3 pg Low 26.0 - 34.0 pg [facility] MCHC (RBC) [Mass/Vol] 30.9 g/dL 30.5 - 36.0 g/dL [facility] MCV (RBC) [Entitic vol] 82.1 fL 80.0 - 100.0 fL [facility] Nucleated RBC (Bld) [#/Vol] <0.01 k/uL [facility] Platelet mean volume (Bld) [Entitic vol] 10.2 fL 9.0 - 12.7 fL [facility] Platelets (Bld) [#/Vol] 267 10*3/uL 150 - 400 k/uL [facility] RBC (Bld) [#/Vol] 4.46 10*6/uL 3.90 - 5.2 0 m/uL [facility] WBC (Bld) [#/Vol] 9.03 10*3/uL 3.70 - 11. 00 k/uL [facility] Comprehensive metabolic 2000 panelon 05-22-2022 Albumin [Mass/Vol] 4.4 g/dL 3.9 - 4.9 g/dL [facility] ALP [Catalytic activity/Vol] 87 U/L 34 - 123 U/L [facility] ALT [Catalytic activity/Vol] 12 U/L 7 - 38 U/L [facility] Anion gap [Moles/Vol] 10 mmol/L 9 - 18 mmol/L [facility] AST [Catalytic activity/Vol] 13 U/L 13 - 35 U/L [facility] Bilirubin [Mass/Vol] 0.3 mg/dL 0.2 - 1 .3 mg/dL [facility] Calcium [Mass/Vol] 8.5 mg/dL 8.5 - 10. 2 mg/dL [facility] Chloride [Moles/Vol] 104 mmol/L 97 - 10 5 mmol/L [facility] CO2 [Moles/Vol] 24 mmol/L 22 - 30 mmol/L [facility] Creatinine [Mass/Vol] 0.75 mg/dL 0.58 - 0.96 mg/dL [facility] Estimated Glomerular Filtration Rate 99 mL/min/1.73m >=60 mL/min/1.73m [facility] Glucose [Mass/Vol] 101 mg/dL High 74 - 99 mg/dL [facility] Potassium [Moles/Vol] 3.7 mmol/L 3.7 - 5.1 mmol/L [facility] Protein [Mass/Vol] 7.5 g/dL 6.3 - 8.0 g/dL [facility] Sodium [Moles/Vol] 138 mmol/L 136 - 144 mmol/L [facility] Urea nitrogen [Mass/Vol] 14 mg/dL 7 - 21 mg/dL [facility] Vital Signs Date Time Vital Sign Value Performing Clinician Johni isaiah 08-05-2022 13:01-0400 Body temperature 99.19 [degF] Ani Hawk EMERGENCY ROOM NURSE.PLUMBING ASSEMBLER INSTALLER Work Phone: [facility] 08-05-2022 13:01-0400 Body weight 78.65 kg Ani Hawk EMERGENCY ROOM NURSE.PLUMBING ASSEMBLER INSTALLER Work Phone: [facility] 08-05-2022 13:01-0400 Diastolic blood pressure 68 mm[Hg] Ani Hawk EMERGENCY ROOM NURSE.PLUMBING ASSEMBLER INSTALLER Work Phone: [facility] 08-05-2022 13:01-0400 Heart rate 102 /min Ani Hawk EMERGENCY ROOM NURSE.PLUMBING ASSEMBLER INSTALLER Work Phone: [facility] 08-05-2022 13:01-0400 Respiratory rate 16 /min Ani Hawk EMERGENCY ROOM NURSE.PLUMBING ASSEMBLER INSTALLER Work Phone: [facility] 08-05-2022 13:01-0400 SaO2% (BldA) [Mass fraction] 98 % Ani Hawk EMERGENCY ROOM NURSE.PLUMBING ASSEMBLER INSTALLER Work Phone: [facility] 08-05-2022 13:01-0400 Systolic blood pressure 124 mm[Hg] Ani Hawk EMERGENCY ROOM NURSE.PLUMBING ASSEMBLER INSTALLER Work Phone: [facility] 05-22-2022 09:13-0500 Body height 147.3 cm Vanessa Esposito MD Work Phone: [facility] 05-22-2022 09:13-0500 Body weight 82.56 kg Vanessa Esposito MD Work Phone: [facility] 05-22-2022 09:13-0500 Diastolic blood pressure 68 mm[Hg] Vanessa Esposito MD Work Phone: [facility] 05-22-2022 09:13-0500 Systolic blood pressure 118 mm[Hg] Vanessa Esposito MD Work Phone: [facility] Encounters Encounter Date Encounter Type Care Provider Facility Start: 10-16-2024 End: 10-16-2024 ambulatory Sobeida Trejo NP Facility:[facility] Start: 09-17-2024 End: 09-17-2024 [facility] Start: 08-05-2022 End: 08-05-2022 Patient encounter procedure Aniderick Hawk APRN.CNP Work Phone: [facility] Comment on above: Urinary frequency (P rimary Dx); Dysuria Start: 05-22-2022 End: 05-22-2022 Patient encounter procedure Vanessa Esposito MD Work Phone: OB/Gynecology Comment on above: Encounter for gyneco logical examination (general) (routine) without abnormal findings (Primary Dx); Encounter for screening mammogram for malignant neoplasm of breast; Screening for cervical cancer; Encounter for screening for human papillomavirus (HPV); Class 2 obesity due to excess calories with body mass index (BMI) of 38.0 to 38.9 in adult, unspecified whether serious comorbidity present; Encounter for screening for diabetes mellitus; Screening, anemia, deficiency, iron; Screening cholesterol level; Encounter for vitamin deficiency screening; Screening for thyroid disorder; Abnormal uterine bleeding (AUB) Start: 05-22-2022 End: 05-22-2022 Patient encounter status Vanessa Esposito MD Work Phone: OB/Gynecology Start: 11-26-2013 End: 11-27-2013 Ambulatory [facility] Facility:[facility] Procedures Date Procedure Procedure Detail Performing Clinician Start: 08-05-2022 Urnls dip stick/tabl et rgnt auto w/o microscopy Angélica Rubio APRN.CHARLENE Work Phone: Start: 11-26-2013 Arteriography of cer ebral arteries PROVIDER UNKNOWN Start: 11-26-2013 INSERTION OF 1 VSC STENT PROVIDER UNKNOWN Start: 11-26-2013 Percutaneous inserti on of carotid artery stent(s) PROVIDER UNKNOWN Start: 11-26-2013 PROCEDURE ON SINGLE VESS PROVIDER UNKNOWN Plan of Treatment Date Care Activity Detail Author Start: 05-22-2027 HPV TESTING HPV TESTING [facility] Start: 05-22-2027 LIPID SCREEN LIPID SCREEN [facility] Start: 05-22-2027 PAP TESTING PAP TESTING [facility] Start: 05-22-2025 DIABETES SCREEN DIABETES SCREEN [facility] Start: 12-21-2022 Influenza vaccination INFLUENZA (Sea son Ended) [facility] Start: 05-22-2022 End: 07-22-2022 25-hydroxyvitamin D3 [Mass/volume] in Serum or Plasma [facility] Work Phone: Comment on above: Expected: 05/22/2022 , Expires: 07/22/2022 Start: 05-22-2022 End: 07-22-2022 Hemoglobin A1c in Blood [facility] Work Phone: Comment on above: Expected: 05/22/2022 , Expires: 07/22/2022 Start: 05-22-2022 End: 07-22-2022 LIPID PANEL, NONFASTING [facility] Work Phone: Comment on above: Expected: 05/22/2022 , Expires: 07/22/2022 Start: 05-22-2022 End: 05-22-2023 PELVIC US WHI PELVIC US I Anc Imaging Routine Abnormal uterine bleeding (AUB) Expected: 05/22/2022, Expires: 05/22/2023 [facility] Work Phone: Comment on above: Expected: 05/22/2022 , Expires: 05/22/2023 Start: 05-22-2022 End: 07-22-2022 Thyrotropin [Units/volume] in Serum or Plasma [facility] Work Phone: Comment on above: Expected: 05/22/2022 , Expires: 07/22/2022 Start: 04-22-2022 DEPRESSION ASSESSMENT DEPRESSION ASS ESSMENT [facility] Start: 12-21-2021 Influenza vaccination INFLUENZA (#1) [facility] Start: 08-03-2021 COVID-19 VACCINE (4 - Booster) COVID-19 VACCINE (4 - Booster) [facility] Start: 09-26-2019 COLOGUARD (FIT-DNA) COLOGUARD (FIT-D NA) [facility] Start: 09-26-2019 Colonoscopy COLONOSCOPY [facility] Start: 09-26-2019 COLORECTAL CANCER SCREENING COLORECTAL CANCER SCREENING [facility] Start: 09-26-[address] COLONOGRAPHY [facility] Start: 09-26-2019 FECAL OCCULT BLOOD FECAL OCCULT BLOO D [facility] Start: 09-26-2019 LIPID SCREEN LIPID SCREEN [facility] Start: 09-26-2019 SIGMOIDOSCOPY SIGMOIDOSCOPY [facility] Start: 2014 Mammography MAMMOGRAM [facility] Start: 2004 HPV TESTING HPV TESTING [facility] Start: 09-26-1995 PAP TESTING PAP TESTING [facility] Start: 1993 Urine microalbumin profile DTAP,TDAP,TD (1 - Tdap) [facility] Start: 1992 HEPATITIS C SCREENING HEPATITIS C SC REENING [facility] Start: 1974 HEPATITIS B (1 of 3 - 3-dose series) HEPATITIS B (1 of 3 - 3-dose series) [facility] Bacteria identified in Urine by Culture URINE CULTURE Microbiology Routine Dysuria Ordered: 08/05/2022 [facility] Work Phone: Comment on above: Ordered: 08/05/2022 End: 06-21-2023 LAI SCREENING W LAUREL LAI SCREENING W LAUREL Radiology Routine Encounter for screening mammogram for malignant neoplasm of breast 1 Occurrences starting 05/22/2022 until 06/21/2023 [facility] Work Phone: Comment on above: 1 Occurrences starti ng 05/22/2022 until 06/21/2023 PAP FLUID CERVICAL SCREENING PAP FLUID CERVICAL SCREENING Lab Routine Screening for cervical cancer Encounter for screening for human papillomavirus (HPV) 05/22/2022 9:[address] [facility] Immun[facility] Immunization Date Immunization Notes Care Provider Eugene feldman 01-22-2009 influenza virus vaccine, live, attenuated, for intranasal use Vanessa Esposito MD Work Phone: [facility] 02-19-2008 influenza virus vaccine, live, attenuated, for intranasal use Vanessa Esposito MD Work Phone: [facility] Work Phone: Payers Date Payer Category Payer Self-pay 2024 Unknown [id number] 2022 Unknown [employer] SALC[employer]O [id number] 2022-Present [phone] [address] [place] [address] Indemnity [id number] Unknown [id number] Unknown [id number] Unknown [id number] Social History Date Type Detail Facility Start: 10-13-2010 Tobacco smoking stat [facility] Never smoked tobacco [facility] Work Phone: Start: 10-13-2010 Tobacco use and exposure Smokeless tobacco non-user [facility] Work Phone: Start: 05-22-2022 End: 08-05-2022 Alcohol intake Current drinker of alcohol (finding) [facility] Start: 1975 Sex Assigned At Not on file [facility] History of Present illness Narrative 08-05-2022 Ani Hawk APRN.PLUMBING ASSEMBLER INSTALLER - 08/05/2022 1:04 PM EDT Note Date & Type Note Facility 08-05-2022 History of Presen t illness Narrative This note was created using BUYSTAND[employer]. Subjective Clari Church is a 46 year old female. 46 year old female with PMH presents for possible uti. Acute onset 2 days ago. +urinary frequency +burning Denies abdominal pain. Denies N/V/D Denies skin rash or lesions. Denies flank pain Denies fever or chills. Denies vaginal bleeding. Denies vaginal discharge. Denies concerns for STI. The history is provided by the patient. No english language learner teacher was used. UTI This is a new problem. The current episode started 2 days ago. Associated symptoms include frequency and urgency. Pertinent negatives include no nausea, no vomiting and no flank pain. PAST MEDICAL HISTORY Diagnosis Date Allergic rhinitis, cause unspecified Depression History of medical problems anxiety related eating disorder Kidney stones Lack of energy Other acne Sinus problem Stroke (HCC) Unable to concentrate Urinary calculus, unspecified Weakness PAST SURGICAL HISTORY Procedure Laterality Date ANKLE SURGERY HX Right CAROTID STENT PAST SURGICAL HISTORY OF tubal ligation ALLERGIES Patient has no known allergies. MEDICATIONS loratadine 10 mg cap Take by mouth. famotidine (PEPCID) 20 mg tablet Take 20 mg by mouth twice daily. fluticasone (FLONASE) 50 mcg/actuation nasal spray Use 1 [place] in each nostril once daily. ARIPiprazole (ABILIFY) 2 mg tablet buPROPion XL (WELLBUTRIN XL) 150 mg 24 hr tablet hydrOXYzine pamoate (VISTARIL) 25 mg capsule sulfamethoxazole-trimethoprim (BACTRIM DS) 800-160 mg per tablet Take 1 tablet by mouth twice daily for 3 days. phenazopyridine (PYRIDIUM) 200 mg tablet Take 1 tablet by mouth three times daily as needed. oxyCODONE-acetaminophen (PERCOCET) 7.5-325 mg tablet Take 1 tablet by mouth every 6 hours as needed. (Patient not taking: Reported on 05/22/2022) Clindamycin-Benzoyl Peroxide 1-5 % gel (Patient not taking: Reported on 05/22/2022) FLUoxetine HCl (PROZAC) 40 mg capsule (Patient not taking: Reported on 05/22/2022) BABY ASPIRIN ORAL once daily. (Patient not taking: Reported on 05/22/2022) BUPROPION HCL (WELLBUTRIN ORAL) 25 mg once daily. (Patient not taking: Reported on 05/22/2022) FAMILY HISTORY Problem Relation Age of Onset Diabetes Maternal Grandmother Social History Tobacco Use Smoking status: Never Smokeless tobacco: Never Vaping Use Vaping Use: Never used Substance Use Topics Alcohol use: Yes Comment: rarely, 2 glass:2-3 times a week Drug use: No Review of Systems Constitutional: Negative for activity change, appetite change, fatigue and fever. Eyes: Negative for pain, discharge and itching. Respiratory: Negative for apnea, cough, choking and chest tightness. Cardiovascular: Negative for chest pain, palpitations and leg swelling. Gastrointestinal: Negative for abdominal pain, diarrhea, nausea and vomiting. Genitourinary: Positive for dysuria, frequency and urgency. Negative for flank pain. Musculoskeletal: Negative for back pain, joint swelling and myalgias. Skin: Negative for color change, pallor, rash and wound. Allergic/Immunologic: Negative for environmental allergies, food allergies and immunocompromised state. Neurological: Negative for dizziness, facial asymmetry and light-headedness. Hematological: Negative for adenopathy. Does not bruise/bleed easily. Psychiatric/Behavioral: Negative for agitation and behavioral problems. Objective LMP 04/08/2022 BP 124/68 Pulse 102 Temp 37.3 C (99.2 F) (Tympanic) Resp 16 Wt 78.7 kg (173 lb 6.4 oz) LMP 05/30/2022 SpO2 98% BMI 36.24 kg/m Physical Exam Vitals and nursing note reviewed. Constitutional: General: She is not in acute distress. Appearance: Normal appearance. She is normal weight. She is not ill-appearing, toxic-appearing or diaphoretic. HENT: Head: Normocephalic and atraumatic. Right Ear: Ear canal and external ear normal. Left Ear: Ear canal and external ear normal. Nose: Nose normal. No congestion or rhinorrhea. Mouth/Throat: Mouth: Mucous membranes are moist. Pharynx: No oropharyngeal exudate or posterior oropharyngeal erythema. Eyes: General: Right eye: No discharge. Left eye: No discharge. Extraocular Movements: Extraocular movements intact. Conjunctiva/sclera: Conjunctivae normal. Pupils: Pupils are equal, round, and reactive to light. Cardiovascular: Rate and Rhythm: Normal rate and regular rhythm. Pulses: Normal pulses. Heart sounds: Normal heart sounds. No murmur heard. No friction rub. Pulmonary: Effort: Pulmonary effort is normal. No respiratory distress. Breath sounds: Normal breath sounds. No stridor. No wheezing, rhonchi or rales. Chest: Chest wall: No tenderness. Abdominal: General: Abdomen is flat. There is no distension. Palpations: Abdomen is soft. There is no mass. Tenderness: There is no abdominal tenderness. There is no right CVA tenderness, left CVA tenderness, guarding or rebound. Hernia: No hernia is present. Musculoskeletal: General: No swelling, tenderness, deformity or signs of injury. Normal range of motion. Cervical back: Normal range of motion and neck supple. No rigidity. Right lower leg: No edema. Left lower leg: No edema. Lymphadenopathy: Cervical: No cervical adenopathy. Skin: General: Skin is warm and dry. Capillary Refill: Capillary refill takes less than 2 seconds. Coloration: Skin is not jaundiced or pale. Findings: No bruising, erythema, lesion or rash. Neurological: General: No focal deficit present. Mental Status: She is alert and oriented to person, place, and time. Cranial Nerves: No cranial nerve deficit. Sensory: No sensory deficit. Motor: No weakness. Coordination: Coordination normal. Gait: Gait normal. Psychiatric: Mood and Affect: Mood normal. Behavior: Behavior normal. Thought Content: Thought content normal. Judgment: Judgment normal. Assessment and Plan ASSESSMENT/PLAN: 1. Urinary frequency - ICD9: 788.41, ICD10: R35.0 (primary diagnosis) acute - UA positive for catracho esterase, hematuria, and proteinuria - Send urine for culture - Begin treatment with Bactrim DS BID for 3 days - Patient education for prevention given - UA DIP, URINE (POC) 2. Dysuria - ICD9: 788.1, ICD10: R30.0 acute - UA positive for catracho esterase, hematuria, and proteinuria - Send urine for culture - Begin treatment with Bactrim DS BID for 3 days - Patient education for prevention given - URINE CULTURE Ani Hwak APRN.PLUMBING ASSEMBLER INSTALLER documented in this encounter [facility] History of Present illness Narrative 05-22-2022 Vanessa Esposito MD - 05/22/2022 9:21 AM ESTMadelnancy Flowers - 05/22/2022 9:05 AM EST Note Date & Type Note Facility 05-22-2022 History of Presen t illness Narrative Clari is a 46 year old who presents for an annual gynecologic exam without complaints. 6 children and 4 grandchildren. 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 Would like to discuss weight gain. Menses: Last period 04/08/22, before she was having periods every 2-3 weeks lasting 3-5 days- some are heavy- No excessive pain Contraception: tubal sterilization - 2002 HPV vaccine: No Last Pap: normal, several years ago HPV: negative History of abnormal pap: No Last mammogram: 2014 normal Sexually active: Yes History of STDS: None Patient concerns for STD exposure: No. Pain with intercourse: No Postcoital bleeding: No Exercise: none Diet: country cooking OB History T0 L6 SAB0 IAB0 Ectopic0 Multiple0 Live Births0 Comment: Vaginal deliveries [employer] History LMP: 04/08/2022, Having periods Age at Menarche: Age at First : Age at Menopause: [employer] History Comments: Sexual Activity: Yes; Male Contraception: Tubal Ligation PAST MEDICAL HISTORY Diagnosis Date Allergic rhinitis, cause unspecified Depression History of medical problems anxiety related eating disorder Kidney stones Lack of energy Other acne Sinus problem Stroke (HCC) Unable to concentrate Urinary calculus, unspecified Weakness PAST SURGICAL HISTORY Procedure Laterality Date ANKLE SURGERY HX Right CAROTID STENT PAST SURGICAL HISTORY OF tubal ligation FAMILY HISTORY Problem Relation Age of Onset Diabetes Maternal Grandmother SOCIAL HISTORY Social History Tobacco Use Smoking status: Never Smokeless tobacco: Never Vaping Use Vaping Use: Never used Substance Use Topics Alcohol use: Yes Comment: rarely, 2 glass:2-3 times a week Drug use: No REVIEW OF SYSTEMS Abdomen: No abdominal pain, nausea, vomiting, diarrhea, or constipation. No bloating, early satiety, indigestion, or increased flatulence. Bladder: No dysuria, gross hematuria, urinary frequency, urinary urgency, or incontinence. Breast: No breast lumps, nipple d/c, overlying skin changes, redness or skin retraction. Allergies and current medication updated:Yes EXAM: BP 118/68 Ht 4' 10 (1.47m) Wt 182 lb (82.6kg) LMP 04/08/2022 BMI 38.05 kg/(m^2). GENERAL: pleasant, female in no apparent distress HEENT: Normocephalic, atraumatic, mucus membranes moist, and no lesions NECK: Supple, full range of motion, no adenopathy, and thyroid normal DERMATOLOGY: Normal, without lesions, non-icteric, and non-hirsute BREAST: soft, non-tender, symmetric, no dominant mass, normal nipple-areolar complex, no lymphadenopathy, and no nipple discharge ABDOMEN: soft, non-tender, and no masses PELVIC: external genitalia normal, normal Bartholin's glands, urethra, Mcconnico's glands, no vulvar lesions, no cervical lesions, good vaginal support, physiologic discharge present, normal appearing perineal body and perianal region BIMANUAL: uterus normal size, shape and consistency, no adnexal masses, and non-tender RECTOVAGINAL: deferred. NEURO: alert and oriented x3,exam grossly non-focal EXTREMITIES: normal ASSESSMENT/PLAN: 1) Health maintenance: Pap done with HPV. Mammogram ordered. Nutrition, exercise and routine health maintenance exams reviewed. Calcium/Vitamin D supplementation information provided. 2) Contraception: tubal sterilization. Contraceptive options reviewed and information provided. 3) STD screening: Declined STD check. 4) weight mgmt appt reivewed 5) labs ordered 6) pelvic us ordered Vanessa Quispe MD Pan Tank Worker offered: Patient declines. documented in this encounter [facility] Evaluation note Note Date & Type Note Facility Evaluation note Diagnosis Encounter for gynecological examination (general) (routine) without abnormal findings- Primary Encounter for screening mammogram for malignant neoplasm of breast Other screening mammogram Screening for cervical cancer Screening for malignant neoplasm of the cervix Encounter for screening for human papillomavirus (HPV) Special screening examination for human papillomavirus (HPV) Class 2 obesity due to excess calories with body mass index (BMI) of 38.0 to 38.9 in adult, unspecified whether serious comorbidity present Encounter for screening for diabetes mellitus Screening for diabetes mellitus Screening, anemia, deficiency, iron Screening for iron deficiency anemia Screening cholesterol level Screening for lipoid disorders Encounter for vitamin deficiency screening Screening for other and unspecified endocrine, nutritional, metabolic, and immunity disorders Screening for thyroid disorder Abnormal uterine bleeding (AUB) documented in this encounter [facility] Evaluation note Note Date & Type Note Facility Evaluation note Diagnosis Urinary frequency- Primary Dysuria documented in this encounter [facility] Reason for referral (narrative) Diagnostic Procedure Only (Routine) - Authorized Note Date & Type Note Facility Reason for referral (narrati ve) Specialty Diagnoses / Procedures Referred By Contchelsey t Referred To Contact [facility] Diagnoses Abnormal uterine bleeding (AUB) Procedures PELVIC US WHI US PELVIC NONOBSTETRIC REAL-TIME IMAGE COMPLETE Vanessa Angeles MD [address] [place] [address] [place] [address] [place] [address] Referral ID Status Reason Start Date Expiration Date Visits Requested Visits Authorized [id number] Authorized Auto-Generat ed Referral OON/Self Pay Override 05/22/2022 04/21/2023 1 1 * Diagnostic Procedure Only (Routine) - Authorized Specialty Diagnoses / Procedures Referred By Contac t Referred To Contact [facility] Diagnoses Encounter for screening mammogram for malignant neoplasm of breast Procedures LAI SCREENING W LAUREL SCREENING DIGITAL BREAST TOMOSYNTHESIS BI SCREENING MAMMOGRAPHY BI 2-VIEW BREAST INC CAD Vanessa Angeles MD [address] [place] [address] [facility] [address] [place] [address] Referral ID Status Reason Start Date Expiration Date Visits Requested Visits Authorized [id number] Authorized Auto-Generat ed Referral OON/Self Pay Override 05/22/2022 04/21/2023 1 1 [facility] Summary Purpose Family History No Family History Records FoundNo Family History Records FoundNo Family History Records Found Advance Directives No Advanced Directives Records FoundNo Advanced Directives Records FoundNo Advanced Directives Records Found Additional Source Comments INFORMATION SOURCE (unrecogn ized section and content) DATE CREATED AUTHOR 10/16/2017 [facility] DATE CREATED AUTHOR AUTHOR'S ORGANIZ ATION 05/12/2024 [facility] DATE CREATED AUTHOR AUTHOR'S ORGANIZ ATION 10/23/2024 [facility] Source Comments (unrecognize d section and content) In the event this informatio n is protected by the Federal Confidentiality of Alcohol and Drug Abuse Patient Records regulations: The Federal rules restrict any use of the information to criminally investigate or prosecute any alcohol or drug abuse patient.[facility] the event this information is protected by the Federal Confidentiality of Alcohol and Drug Abuse Patient Records regulations: The Federal rules restrict any use of the information to criminally investigate or prosecute any alcohol or drug abuse patient.[facility] Reason for Visit (unrecogniz ed section and content) Reason Comments Yearly Exam Specialty Diagnoses / Procedures Referred By Isabel bush Referred To Contact [employer] Diagnoses annual Procedures [facility] ANNUAL Self Vanessa Angeles MD [address] [place] [address] Referral ID Status Reason Start Date Expiration Date Visits Requested Visits Authorized [id number] Denied Financial Clearance Required - OON Payor OON Notification Letter Clearance Not Met - Admin/Optometrist President/Practice Owner/D irector Advise to Postpone/Resched ule or Not Proceed 05/22/2022 08/20/2022 1 0 Reason Comments Urinary Problem Pt reported frequenc y, burning x2 days. Care Teams (unrecognized sec tion and content) Benefits Assistant Relationship Specialty Start Date End Date Pcp, No PCP - General 11/04/21 05/22/22 FOR RECORDS PERTAINING TO PATIENTS WHO ARE OR HAVE BEEN ENROLLED IN A CHEMICAL DEPENDENCY/SUBSTANCEABUSE PROGRAM, SOME INFORMATION MAY BE OMITTED. This clinical summary was aggregated from multiple sources. Caution should be exercised in using it in the provision of clinical care. This summary normalizes information from multiple sources, and as a consequence, information in this document may materially change the coding, format and clinical context of patient data. In addition, data may be omitted in some cases. CLINICAL DECISIONS SHOULD BE BASED ON THE PRIMARY CLINICAL RECORDS. [facility]. provides no warranty or guarantee of the accuracy or completeness of information in this document.
[2024-11-17 07:51] LABS: Cholesterol 232 mg/dL (<=200); Follicle Stimulating Hormone 42.4 mIU/mL; Low Density Lipoprotein Calc. 144 mg/dL; Triglycerides 128 mg/dL; Very Low Density Lipoprotein 26 mg/dL (5-40); cholesterol:hdl ratio screen 3.74
== END | disposition home or self-care (01) ==
LOC: LAB 05:50
PROVIDERS: PCP Family Medicine; Referring Provider Family Medicine; Visit Provider Family Medicine
DX: N95.1 Menopausal and female climacteric states (principal)
CPT/HCPCS: 36415; 80061; 82670; 83001; 83002

== ENCOUNTER 2025-01-27 12:21 | Emergency (ER) | payer OTHER, SELFPAY ==
[2025-01-27 12:23] VITALS: BP 188/109; PULSE 86; RESP 18; TEMP 36.9; O2SAT 100; BMI 38.2
[2025-01-27] MEDS: 0.9% Normal Saline (1000mL) 1,000 ML 1000 ML IV (13:44)
[2025-01-27 13:56] LABS: Hematocrit 39.6 % (37-47); Hemoglobin 12.9 g/dL (12.0-15.0); Immature Granulocytes Count 0.030 X10^3/uL (0.0-0.0); Mean Corp Hgb Conc 32.6 g/dL (32-36); Mean Corpuscular Volume 93.0 fL (81-99); Mean Platelet Vol. 10.0 fl (6.2-12.0); NRBC Flagged by Analyzer 0 % (0-5); Platelet Count 265 K/mm3 (150-450); RBC Distribution Width CV 13.1 % (11.6-14.6); RBC Distribution Width SD 44.4 fl (35.1-43.9); Red Blood Count 4.26 M/mm3 (4.2-5.4); White Blood Count 9.7 K/mm3 (4.4-11.0)
[2025-01-27 13:57] LABS: Mucous, Urine 0 SEEN /hpf (<or=2+); Red Blood Cells-Urine 0 SEEN /hpf (0-5)
[2025-01-27 14:03] LABS: Color, Urine Yellow (Yellow); Glucose, Dipstick Normal (Normal); Ketone-Dipstick Negative (Negative); Leukocyte Esterase-Dipstick Negative /ul (Negative); Nitrite-Dipstick Negative (Negative); Occult Blood-Urine Negative /ul (Negative); Protein-Dipstick 15 mg/dl (Negative); Specific Gravity, Urine 1.010 (1.002-1.030); Urine Bilirubin Dipstick Negative (Negative)
[2025-01-27 14:15] VITALS: PULSE 83; RESP 22
[2025-01-27 14:25] LABS: Anion Gap 10 (5-15); BUN 12 mg/dL (4-19); BUN/Creat Ratio 14.9 RATIO (10-20); Calcium,Total 8.6 mg/dL (7.6-11.0); Carbon Dioxide 24.4 mmol/L (21.0-32.0); Chloride 103 mmol/L (98-108); Estimated Creatinine Clearance 80.36 ml/min (50-250); Glucose 93 mg/dL (70-99); Potassium 3.7 mmol/L (3.3-5.1)
[2025-01-27 14:33] LABS: Squamous Epithelial Cells - UA 0-5 SEEN /hpf (5-10)
[2025-01-27 14:34] LABS: Lithium 0.12 mmol/L (0.60-1.20)
--- NOTE | 2025-01-27 14:54 | EX.ED.DYSGE1 ---
HPI History of Present Illness Chief Complaint: General Illness Detail of Chief Complaint: Patient presents with shakes/tremors. Contacted doctor who was concerned f Informant: patient Onset/Context/Timing Onset: Weeks Context: Sudden Onset Timing: Continuous and Waxes and wanes Quality: Tremors/shakes, paresthesia, fatigue Location: Generalized Current Severity: Mild Maximum Severity: Moderate Worsened by: Nothing Relieved by: Nothing Associated Symptoms Associated Symptoms: Elevated blood pressure Narrative Narrative: Patient is a 49-year-old woman. She contacted her doctor and there was concern for possible lithium toxicity. She is only on 300 mg a day. She does endorse change in urine i.e. going more frequently with polyuria. There is no history of diabetes in the family or past history of. She denies fever, chills night sweats. She denies headache, double vision, blurred vision loss of vision. Denies ringing or ears decreased hearing. Denies trouble with speech or swallowing. She denies cardiac or respiratory symptoms. She denies abdominal pain. She denies dysuria or hematuria. She denies paresthesia or anesthesia. Denies problems with coordination or balance. Recent Illness/Hospitalization: No PFSH PFS Medical History Bipolar 1 disorder Home Medications ?Medication ?Instructions ?Recorded ?Last Taken ?Type aripiprazole 2 mg tablet 2 mg PO DAILY 09/06/15 Unknown History hydroxyzine pamoate 25 mg capsule 25 - 50 mg PO BID PRN Anxiety 09/29/15 Unknown History Lactobacillus acidophilus 2 1 ea PO DAILY 04/26/16 Unknown History billion cell tablet ascorbic acid (vitamin C) 500 mg 500 mg PO DAILY 04/26/16 Unknown History tablet (Vitamin C) bupropion HCl 300 mg 24 hr tablet, 300 mg PO DAILY 04/26/16 Unknown History extended release melatonin 10 mg sublingual tablet 10 mg PO QHS 04/26/16 Unknown History hydrochlorothiazide 12.5 mg tablet 12.5 mg PO DAILY #30 tabs 01/27/25 Unknown Rx Allergy/AdvReac Type Severity Reaction Status Date / Time No Known Allergies Allergy Verified 01/27/25 12:24 Social History Smoking Status: Never smoker ROS ROS ED Constitutional Constitutional ED: Denies chills, fever(s), subjective or sweats Eyes Eyes: Denies blurry vision or change in vision ENT ENT ED: Denies ear pain, rhinorrhea or sore throat Cardiovascular Cardiovascular: Denies chest pain or palpitations Respiratory/Chest Respiratory/Chest: Denies cough, dyspnea or dyspnea on exertion Gastrointestinal Gastrointestinal: Denies abdominal pain, nausea or vomiting Genitourinary Genitourinary ED: Reports urinary frequency; Denies dysuria or hematuria Musculoskeletal Musculoskeletal: Denies arthralgias or myalgias Integumentary Denies rash Neurologic Neurologic: Reports paresthesias and weakness Psychiatric Psychiatric: Reports anxiety and depression Endocrine Endocrinology: Reports polydipsia and polyuria; Denies cold intolerance or heat intolerance EXAM Physical Exam Const Vital Signs: 01/27/25 12:23 01/27/25 13:43 01/27/25 14:15 Temperature 98.5 F Temperature Source Oral Pulse Rate 86 83 Respiratory Rate 18 22 H Respiratory Effort Normal Non-Labored Respiratory Pattern Normal Blood Pressure 188/109 H Blood Pressure Mean 135 Pulse Ox 100 Oxygen Delivery Method Room Air Positive well nourished and well developed Constitutional Narrative: Blood pressure is elevated. General Appearance ED: well developed and NAD HEENT Reports dry mucous membranes HEENT Narrative: Head is atraumatic no cephalic. Ears normal. Nares patent. Mouth ED: Yes dry mucous membranes Mouth: dry mucous membranes Eyes PERRL and EOMs intact bilaterally General Eye ED: Negative for pale conjunctiva or scleral icterus Neck no lymphadenopathy, supple and no JVD Chest Wall inspection of chest normal and palpation of chest normal Resp normal respiratory effort and clear to auscultation bilaterally Cardio regular rate, regular rhythm, S2 normal heart sound and no murmurs GI normal to inspection, nondistended, normoactive bowel sounds, non-tender, non-distended and no masses Back/Spine no CVA tenderness Extremity General Extremety ED: Negative for edema or tenderness General Extremity: Negative for edema Neuro oriented x3, CN's II-XII intact bilaterally and no sensory deficits noted Neuro Narrative: Bicep, brachialis, tricep, patellar ankle reflex are 1-2+ and symmetric. There is no clonus or Babinski sign noted. Sensorium / Orientation: alert Motor Exam: strength 5/5 throughout Psych mental status grossly normal Skin no rashes or lesions noted, no wounds and skin turgor normal MDM MDM MDM Narrative Medical decision making narrative: Will obtain lithium level to assess for toxicity. With her having increased urination will assess blood sugar as well as urine for UTI. Lab Data Attestation: I reviewed the patient's lab results. Lab results narrative: CBC is unremarkable. Basic metabolic panel is normal. Urinalysis is negative. [place] is subtherapeutic at 0.12. Labs: Laboratory Results - last 24 hr 01/27/25 01/27/25 13:45 13:50 WBC 9.7 RBC 4.26 Hgb 12.9 Hct 39.6 MCV 93.0 MCH 30.3 MCHC 32.6 RDW Std Deviation 44.4 H RDW Coeff of [place]and[place] 13.1 Plt Count 265 MPV 10.0 Immature Gran % (Auto) 0.300 Neut % (Auto) 72.5 H Lymph % (Auto) 20.3 [place] % (Auto) 5.8 Eos % (Auto) 0.6 Baso % (Auto) 0.5 Absolute Neuts (auto) 7.0 Absolute Lymphs (auto) 1.96 Nucleated RBC % 0 Sodium 137 Potassium 3.7 Chloride 103 Carbon Dioxide 24.4 Anion Gap 10 BUN 12 Creatinine 0.80 Estim Creat Clear Calc 80.36 Est GFR (MDRD) Non-Af 90 BUN/Creatinine Ratio 14.9 Glucose 93 Calcium 8.6 Urine Color Yellow Urine Clarity Clear Urine pH 6.5 Ur Specific [place] 1.010 Urine Protein 15 H Urine Glucose (UA) Normal Urine Ketones Negative Urine Occult Blood Negative Urine Nitrite Negative Urine Bilirubin Negative Urine Urobilinogen Normal Ur Leukocyte Esterase Negative Urine RBC 0 SEEN Urine WBC 0 SEEN Ur Squamous Epith Cells 0-5 SEEN Urine Bacteria 0 SEEN Urine Mucus 0 SEEN [place] 0.12 L Treatment and Re-Evaluation :: Patient was told of results. She had no questions. She was discharged home Discharge Plan Triage Chief Complaint: General Illness ED Provider: Junior Damian Dx/Rx/DC Orders Clinical Impression: Action tremor, Elevated blood pressure reading without diagnosis of hypertension Instructions: Essential Tremor (ET), ED High Blood Pressure New Begin Tx Prescriptions: New hydrochlorothiazide 12.5 mg tablet 12.5 mg PO DAILY Qty: 30 0RF No Action aripiprazole 2 MG tablet 2 mg PO DAILY hydroxyzine pamoate 25 MG capsule 25 - 50 mg PO BID PRN (Reason: Anxiety) ascorbic acid (vitamin C) [Vitamin C] 500 MG tablet 500 mg PO DAILY bupropion HCl 300 MG tablet extended release 24 hr 300 mg PO DAILY Lactobacillus acidophilus 1 EACH tablet 1 ea PO DAILY melatonin 10 MG tablet 10 mg PO QHS Primary Care Provider: Juan Antonio Shaw Referrals: Juan Antonio Shaw MD [Primary Care Provider, Family Practice] - 1-2 Weeks Activity Restrictions/Additional Instructions: The blood pressure medicine you were started on will cause you to have increased urination for the first 1 [address] Juan Antonio Shaw's office for blood pressure check in 1 to 2 weeks. Print Language: [place] Disposition Disposition: Home, Self Care
[2025-01-27 15:38] VITALS: BP 188/116; PULSE 80; RESP 12; TEMP 36.3; O2SAT 100
== END 2025-01-27 15:39 | disposition home or self-care (01) ==
PROVIDERS: Emergency Provider Emergency Medicine; PCP Family Medicine; Visit Provider Emergency Medicine
DX: R25.1 Tremor, unspecified (principal); F31.9 Bipolar disorder, unspecified; R03.0 Elevated blood-pressure reading, without diagnosis of hypertension; Z79.899 Other long term (current) drug therapy
CPT/HCPCS: 80048; 80178; 81001; 85025; 93005; 96360; 99283; A4216

== ENCOUNTER → 2025-02-22 | Outpatient (CLI) | payer OTHER, SELFPAY ==
[2025-02-22 12:48] LABS: Hematocrit 44.1 % (37-47); Hemoglobin 14.2 g/dL (12.0-15.0); Immature Granulocytes Count 0.050 X10^3/uL (0.0-0.0); Mean Corp Hgb Conc 32.2 g/dL (32-36); Mean Corpuscular Volume 94.2 fL (81-99); Mean Platelet Vol. 11.0 fl (6.2-12.0); NRBC Flagged by Analyzer 0 % (0-5); Platelet Count 262 K/mm3 (150-450); RBC Distribution Width CV 12.5 % (11.6-14.6); RBC Distribution Width SD 43.4 fl (35.1-43.9); Red Blood Count 4.68 M/mm3 (4.2-5.4); White Blood Count 8.2 K/mm3 (4.4-11.0)
[2025-02-22 13:11] LABS: AST(SGOT) 17 U/L (<=31); Alanine Aminotransfer ALT/SGPT 17 U/L (<=34); Albumin, Serum 4.3 g/dL (3.5-5.0); Alkaline Phosphatase 76 U/L (35-104); Anion Gap 10 (5-15); BUN 14 mg/dL (4-19); BUN/Creat Ratio 16.6 RATIO (10-20); Calcium,Total 9.2 mg/dL (7.6-11.0); Carbon Dioxide 26.0 mmol/L (21.0-32.0); Chloride 103 mmol/L (98-108); Globulin 2.9 g/dL (2.2-4.2); Glucose 91 mg/dL (70-99); Magnesium 2.2 mg/dL (1.5-2.2); Potassium 3.4 mmol/L (3.3-5.1)
[2025-02-22 13:16] LABS: Lithium 0.50 mmol/L (0.60-1.20)
[2025-02-22 16:20] LABS: Ammonia 10.3 umol/L (11-51)
== END | disposition home or self-care (01) ==
LOC: MFPLAB 10:24
PROVIDERS: PCP Family Medicine; Visit Provider Family Medicine
DX: I10 Essential (primary) hypertension (principal); F31.70 Bipolar disorder, currently in remission, most recent episode unspecified
CPT/HCPCS: 36415; 80053; 80178; 82140; 83735; 85025